=== PATIENT | male | born 2000 | race Caucasian/White ===

== ENCOUNTER 2021-09-01 09:35 | Inpatient (IN) ==
[2021-09-01] MEDS ORDERED: IPRATROPIUM/ALBUTEROL 3 ML AMPUL.NEB NEB ONE ×2 (09:42→09:48)
--- NOTE | 2021-09-01 09:45 | Emergency Department Note ---
HPI General Chief complaint: Shortness of Breath/Dyspnea Stated complaint: Shortness of Breath Time Seen by Provider: 09/01/21 09:44 Source: patient Mode of arrival: ambulatory Limitations: no limitations History of Present Illness HPI Narrative: 21-year-old male with past medical history of exercise-induced asthma presenting with shortness of breath since yesterday. He has an associated nonproductive cough. States he had exercise-induced asthma as a child but is not currently on any medication. Denies any sick contacts. No fever, chest pain, vomiting, or leg swelling. Patient states he was diagnosed with Covid in January 2021. He has not received the Covid vaccine. No recent travel. No other complaints. Related Data Home Medications Medication Instructions Recorded Confirmed No Known Home Meds 09/01/21 09/01/21 Allergies Allergy/AdvReac Type Severity Reaction Status Date / Time hay fever Allergy Severe shortness Uncoded 09/01/21 09:34 of breath Review of Systems ROS ROS Narrative: Narrative: Constitutional: Denies fever or chills Eyes: Denies vision change ENT ED: Denies ear pain or throat pain Cardiovascular: Denies chest pain or palpitations Respiratory: Reports shortness of breath and cough; Denies hemoptysis Gastrointestinal: Denies abdominal pain, nausea or vomiting Genitourinary: Denies dysuria or frequency Musculoskeletal: Denies back pain or joint swelling Integumentary: Denies rash or lesions Neurological: Denies headache or weakness Psychiatric: Denies anxiety or depression Endocrine: Denies fatigue or heat or cold intolerance Hematological/Lymphatic: Denies easy bleeding or easy bruising PFS Narrative Patient History Narrative: Narrative: Medical/Surgical/Family History All Active Problems (Updated 09/01/21 @ 14:20 by Shantanu Blanchard MD) Asthma exacerbation (Acute) Acute respiratory failure with hypoxia (Acute) Shortness of breath (Acute) Medical History (Updated 09/01/21 @ 14:20 by Shantanu Blanchard MD) Shortness of breath Social History Smoking Status: Never smoker Exam Narrative Narrative: Narrative: General Limitations: no limitations General appearance: Present alert and other (In moderate respiratory distress) Head Head: Present atraumatic and normocephalic Eye Eye: Present normal appearance, PERRL and EOMI; Absent scleral icterus or conjunctival injection ENT ENT: Present normal oropharynx and mucous membranes moist Neck Neck: Present full ROM and trachea midline; Absent lymphadenopathy Chest Chest: Present symmetric chest wall rise Respiratory Respiratory: Present respiratory distress, wheezes (Inspiratory and expiratory wheezes bilaterally) and accessory muscle use; Absent rales/crackles or stridor Cardiovascular Cardiovascular: Present regular rate and normal rhythm; Absent systolic murmur or diastolic murmur Adbominal Abdominal: Present soft; Absent distention, tenderness, guarding, rebound, rigidity, organomegaly or mass Extremities Extremities: Absent pedal edema, pretibial edema or calf tenderness Back Back: Absent CVA tenderness (R), CVA tenderness (L) or spinous process tenderness Neurological Neurological: Present alert and oriented X3 Psychiatric Psychiatric: Present normal affect and normal mood Skin Skin: Present warm (WNL) and dry Course Reevaluation(s) Reevaluation #1: Patient continues to be hypoxic to the high 80s on 4 L via nasal cannula. Wheezing is somewhat improved but still present. Time: 13:30 Consultations Consultation #1: Dr. Pritchett, hospitalist Time: 13:50 Vital Signs Vital signs: Vital Signs Temperature 98.7 F 09/01/21 09:36 Pulse Rate 117 H 09/01/21 09:36 Respiratory Rate 26 H 09/01/21 09:36 Blood Pressure 154/104 09/01/21 09:36 Pulse Oximetry (%) 85 L 09/01/21 09:36 Temperature 98.7 F 09/01/21 09:36 Pulse Rate 90 09/01/21 13:46 Respiratory Rate 33 H 09/01/21 13:46 Blood Pressure 132/78 09/01/21 13:46 Pulse Oximetry (%) 86 L 09/01/21 13:46 [facility] MDM Narrative Medical decision making narrative: 21-year-old male with remote history of asthma presenting with shortness of breath. On arrival he is hypoxic to 87% on room air with moderate respiratory distress, retractions, and bilateral wheezing. He was given IV Solu-Medrol and a DuoNeb treatment. He is currently on 4 L of O2 via nasal cannula. Chest x- ray shows possible infiltrate in the right perihilar area. Given his symptoms will treat for pneumonia. Hour-long neb treatment and IV Rocephin ordered. Labs and blood cultures are pending. Influenza and rapid Covid test is negative. Will continue to monitor, likely admission for dyspnea and hypoxia. Labs notable for mild leukocytosis. IV magnesium ordered for asthma exacerbation. Patient discussed with admitting hospitalist Dr. Pritchett. Lab Data Lab results reviewed: Yes I reviewed the patient's lab results. Result diagrams: 09/01/21 11:30 09/01/21 11:30 Labs: Lab Results 09/01/21 09/01/21 Range/Units 11:30 11:30 WBC 14.5 H (4.5-11.0) K/mcL RBC 5.80 (4.63-6.08) M/mcL Hgb 18.2 H (13.7-17.5) g/dL Hct 51.0 (40.1-51.0) % MCV 87.9 (80.0-100.0) fL MCH 31.4 (26.0-34.0) pg MCHC 35.7 (31.0-36.0) g/dL RDW 11.8 (11.5-14.5) % Plt Count 303 (140-440) K/mcL MPV 10.5 H (7.4-10.4) fL Neut % (Auto) 59.0 (38.0-78.0) % Lymph % (Auto) 15.2 L (15.5-49.0) % [place] % (Auto) 8.4 (1.0-12.0) % Eos % (Auto) 16.3 H (0.0-7.0) % Baso % (Auto) 1.1 (0.0-2.0) % Lymph # (Auto) 2.19 (1.50-4.80) K/mcL [place] # (Auto) 1.21 H (0.10-0.90) K/mcL Eos # (Auto) 2.36 H (0.00-0.70) K/mcL Baso # (Auto) 0.16 (0.00-0.30) K/mcL Absolute Neutrophils 8.53 H (1.80-8.00) K/mcL Sodium 134 (133-145) mmol/L Potassium 4.1 (3.3-5.1) mmol/L Chloride 99 (96-108) mmol/L Carbon Dioxide 18 L (22-30) mmol/L Anion Gap 17.0 H (8.0-16.0) BUN 18 (6-20) mg/dL Creatinine 0.9 (0.7-1.2) mg/dL GFR Calculation 122 Glucose 81 (70-105) mg/dL Calcium 9.8 (8.6-10.4) mg/dL Magnesium 2.3 (1.6-2.5) mg/dL Total Bilirubin 0.9 (0.1-1.0) mg/dL AST 29 (<40) U/L ALT 14 (<40) U/L Alkaline Phosphatase 67 (39-117) U/L Total Protein 8.1 (5.9-8.4) gm/dL Albumin 5.0 (3.2-5.2) gm/dL Globulin 3.1 (2.2-3.7) gm/dL Albumin/Globulin Ratio 1.6 (1.0-2.3) ED POC Tests ED POC Tests: PHILOMENA - Influenza A Negative PHILOMENA - Influenza B Negative PHILOMENA - SARS Antigen Negative Radiology Data Radiology results reviewed: Yes I reviewed the patient's radiology results. Radiology results narrative: Ordering Physician:Shantanu Blanchard M.D. Date of Service:09/01/21 Procedure(s):XR chest 1V portable CLINICAL INFORMATION: Left-sided chest pain and cough COMPARISON: 07/07/2021 TECHNIQUE: Portable FINDINGS: The heart size, mediastinum and pulmonary vessels are unremarkable. The lungs are clear. There are no effusions. The bones and soft tissues are within normal limits. IMPRESSION: Normal chest. Interpreted and Authenticated by: Darin Lai 09/01/21 EKG Data EKG #1: EKG attestation: Yes I reviewed and interpreted this EKG. and Yes There are no EKG findings of acute coronary syndrome EKG results narrative: Sinus rhythm at [address] elevation or depression. Interpretation: no acute changes Pulse Oximetry Data Pulse Ox %: 87 Interpretation: On RA, placed on O2 via NC Discharge Plan Patient/Caregiver Discharge Instructions Pt seen by [employer]ER/PA only: No Clinical Impression: Asthma exacerbation Patient Disposition: Xfer As Inpt ([facility]) Follow up with: Unknown,Unknown [Primary Care Provider] - Prescriptions: No Action No Known Home Meds 0RF
[2021-09-01] MEDS ORDERED: methylPREDNISolone SOD SUCC 125 MG/2 ML VIAL IV ONE (09:51)
[2021-09-01] MEDS ORDERED: cefTRIAXone 1 GM VIAL IV ONE (11:32)
[2021-09-01] MEDS ORDERED: ALBUTEROL SULFATE 5 MG/ML NEB SOLUTION BOTTLE NEB ONE (11:34)
[2021-09-01 12:50] LABS: ALT/SGPT 14 U/L (<40); AST/SGOT 29 U/L (<40); Albumin/Globulin Ratio 1.6 (1.0-2.3); Alkaline Phosphatase 67 U/L (39-117); Basophils # (Auto) 0.16 K/mcL (0.00-0.30); Basophils % (Auto) 1.1 % (0.0-2.0); Bilirubin,Total 0.9 mg/dL (0.1-1.0); Blood Urea Nitrogen 18 mg/dL (6-20); Calcium 9.8 mg/dL (8.6-10.4); Carbon Dioxide 18 mmol/L (22-30); Chloride 99 mmol/L (96-108); Eosinophils # (Auto) 2.36 K/mcL (0.00-0.70); Eosinophils % (Auto) 16.3 % (0.0-7.0); Globulin 3.1 gm/dL (2.2-3.7); Glomerular Filtration Rate 122; Glucose 81 mg/dL (70-105); Hemoglobin 18.2 g/dL (13.7-17.5); Lymphocytes # (Auto) 2.19 K/mcL (1.50-4.80); Lymphocytes % (Auto) 15.2 % (15.5-49.0); Mean Cell Volume 87.9 fL (80.0-100.0); Mean Corpuscular HGB Conc 35.7 g/dL (31.0-36.0); Mean Platelet Volume 10.5 fL (7.4-10.4); Monocytes # (Auto) 1.21 K/mcL (0.10-0.90); Monocytes % (Auto) 8.4 % (1.0-12.0); Platelet Count 303 K/mcL (140-440); Red Cell Distribution Width 11.8 % (11.5-14.5); WBC 14.5 K/mcL (4.5-11.0)
--- NOTE | 2021-09-01 12:56 | XRay Report ---
CLINICAL INFORMATION: Left-sided chest pain and cough COMPARISON: 07/07/2021 TECHNIQUE: Portable FINDINGS: The heart size, mediastinum and pulmonary vessels are unremarkable. The lungs are clear. There are no effusions. The bones and soft tissues are within normal limits. IMPRESSION: Normal chest. Interpreted and Authenticated by: Darin Lai 09/01/21
[2021-09-01] MEDS ORDERED: MAGNESIUM SULFATE 8.12 MEQ in DEXTROSE 5% IN WATER 50 ML IV ONE (14:04)
--- NOTE | 2021-09-01 14:15 | Internal Med History&Physical ---
HPI History of Present Illness Patient information: Note initiated : 09/01/21 at 2:07 pm Service Date, if different from initiated Date: [] Patient: Rolando Velazquez a 21 y/o M admitted on for Shortness of Breath. Chief Complaint: [SOB] History of present illness: Mr. Velazquez is a 21 year old M history of asthma, presenting with 1 week history of productive cough with white sputum with blood-tinged, and 2-day history of shortness of breath and wheezing. He had an episode of asthma exacerbations back in January 2021. Over the past week, he has acute onset, progressively worsening productive cough with white sputum with blood-tinged, as well as 2-day history of shortness of breath, chest tightness, and respiratory wheezings. Patient denies any fever, chills, or diaphoresis. Review of system also positive for anxiety. Patient admits to smoking marijuana but denies cigarette smoking or alcohol consumption's. Patient work in [employer] in the [employer], and denies exposure to environmental risk factors such as [place] environment, new pet, or old carpets. He living in his new apartment with new carpet. He is living with 3 cats but he has them for long time. Vital signs at ED presentation significant for oxygen desaturating to the 80s on room air, as well as tachycardia and tachypnea with rate of breathing up to 40s and heart rate up to 130s beats per minutes. Labs significant for leukocytosis with WBC 14.5. Covid [place] screening test negative. [place] results pending. Chest x-ray clear. Constitutional Constitutional: Absent chills, excessive sweating, fatigue, fever(s) or weakness EENT Eyes: Absent blurry vision, change in vision, loss of vision or other visual disturbances Ears: Absent decreased hearing or tinnitus Nose, mouth and throat: Absent abnormal hearing, dry mouth, headache(s), nasal congestion or sore throat Cardiovascular Cardiovascular: Present chest pain; Absent chest pain at rest, edema, irregular heart rhythm or palpatations Respiratory Respiratory: Present cough, dyspnea, wheezing and excessive phlegm production Gastrointestinal Gastrointestinal: Absent abdominal pain, constipation, diarrhea, nausea or vomiting Musculoskeletal Musculoskeletal: Absent back pain, deformity, limited range of motion, muscle cramps, muscle weakness or numbness Integumentary Integumentary: Absent lesions, rash or wounds Neurological Neurological: Absent focal weakness, headache(s) or numbness Psychiatric Psychiatric: Present anxiety; Absent depression or hallucinations PFSH PFSH All Active Problems (Updated 09/01/21 @ 14:12 by Joe Pritchett MD) Asthma exacerbation (Acute) Acute respiratory failure with hypoxia (Acute) Shortness of breath (Acute) Medical History (Updated 09/01/21 @ 14:12 by Joe Pritchett MD) Shortness of breath MEDS/ALLERGIES Home Medications and Allergies Home Medications Medication Instructions Recorded Confirmed Type No Known Home Meds 09/01/21 09/01/21 History Allergies Allergy/AdvReac Type Severity Reaction Status Date / Time hay fever Allergy Severe shortness Uncoded 09/01/21 09:34 of breath EXAM Constitutional Vitals: Temp Pulse Resp BP Pulse Ox 37.1 C 90 33 H 132/78 86 L 09/01/21 09:36 09/01/21 13:46 09/01/21 13:46 09/01/21 13:46 09/01/21 13:46 General appearance: cooperative and mild distress Head Head exam: Present atraumatic and normocephalic Eye Eye exam: Present EOMI and PERRL ENT ENT exam: Present mucous membranes moist, normal exam and normal external ear exam Additional comments: Nasal cannula in place Neck Neck exam: Present normal inspection; Absent lymphadenopathy, tenderness or thyromegaly Respiratory Respiratory exam: Present respiratory distress, rhonchi and wheezes; Absent accessory muscle use or CTAB Cardiovascular Cardiovascular exam: Present normal rate and rhythm; Absent JVD GI/Abdominal GI/Abdominal exam: Present normal bowel sounds and soft; Absent organomegaly or tenderness Rectal Rectal exam: Present deferred Extremities Exam Extremities exam: Present full ROM, normal capillary refill and normal inspection; Absent tenderness Neurological Exam Neurological exam: Present alert, CN II-XII intact and oriented X3; Absent motor sensory deficit Psychiatric Psychiatric exam: Present normal affect and normal mood; Absent anxious or depressed Skin Skin exam: Present dry and intact DATA Data Completed and Pending Labs: Labs from last 24 hours 09/01/21 09/01/21 11:30 11:30 WBC 14.5 H RBC 5.80 Hgb 18.2 H Hct 51.0 MCV 87.9 MCH 31.4 MCHC 35.7 RDW 11.8 Plt Count 303 MPV 10.5 H Neut % (Auto) 59.0 Lymph % (Auto) 15.2 L [place] % (Auto) 8.4 Eos % (Auto) 16.3 H Baso % (Auto) 1.1 Lymph # (Auto) 2.19 [place] # (Auto) 1.21 H Eos # (Auto) 2.36 H Baso # (Auto) 0.16 Absolute Neutrophils 8.53 H Sodium 134 Potassium 4.1 Chloride 99 Carbon Dioxide 18 L Anion Gap 17.0 H BUN 18 Creatinine 0.9 GFR Calculation 122 Glucose 81 Calcium 9.8 Magnesium 2.3 Total Bilirubin 0.9 AST 29 ALT 14 Alkaline Phosphatase 67 Total Protein 8.1 Albumin 5.0 Globulin 3.1 Albumin/Globulin Ratio 1.6 A/P Assessment and plan (1) Acute respiratory failure with hypoxia: Status: Acute (2) Asthma exacerbation: Status: Acute Narrative A/P Narrative: Assessment and Plans: 1. Acute respiratory failure with hypoxia: DDx: asthma exacerbation vs pneumonia vs CoVID pneumonia: Admit to inpatient med surg with telemetry s/p DuoNEB, MgSO4, Solu-medrol, and oxygen therapy in the ED VBG Procalcitonin Lactic acid Blood culture Sputum culture [place] negative, [place] pending Supplemental oxygen therapy titrate to achieve spo2>=92%, currently on 4L/min Prednisone DuoNEB NEB q4hr scheduled Albuterol NEB q2hr PRN wheezing or SOB Robitussin DM PRN cough Tylenol PRN fever cbc w/ auto diff in the morning to trend WBC level GI ppx: not currently indicated DVT ppx: Lovenox Code status: Full Prognosis: guarded Disposition: inpatient med surg telemetry Time Spent With Patient Time: Total time spent is greater than 50% in coordination of care (as documented) at patient's floor/unit and/or counseling patient: Total time spent with greater than 50% in coordination of care (as documented) at patient's floor/unit and/or counseling patient:: 25 - 35 minutes
[2021-09-01] MEDS ORDERED: guaiFENesin/DEXTROMETHORPHAN ORAL SOL PO PRN (14:18)
[2021-09-01] MEDS ORDERED: ONDANSETRON 4 MG/2 ML VIAL IV PRN (14:48)
[2021-09-01] MEDS ORDERED: ACETAMINOPHEN 325 MG TABLET PO PRN (14:48)
[2021-09-01] MEDS ORDERED: ZOLPIDEM 5 MG TABLET PO PRN (14:48)
[2021-09-01] MEDS ORDERED: IOPAMIDOL 100 ML BOTTLE IV ONE (15:19)
[2021-09-01] MEDS: IPRATROPIUM/ALBUTEROL 3 ML AMPUL.NEB NEB SCH ×3 (15:55→23:41)
--- NOTE | 2021-09-01 18:14 | Cat Scan Report ---
CLINICAL INFORMATION: Dyspnea COMPARISON: None. TECHNIQUE: 80ml of Isovue-370 were injected intravenously. Using SmartPrep to maximize pulmonary artery opacification, .625mm helical slices were obtained from the lung apices through the lung bases. Following reconstruction, 2.5 mm sagittal, coronal, and axial reformations were processed. The exam was reviewed at mediastinal, lung, and bone windows. The exam was performed using radiation dose optimization techniques including, but not limited to, automated exposure control, adjustment of the mA and/or kV according to patient size and use of iterative reconstruction technique. FINDINGS: Pulmonary parenchymal windows show scattered small groundglass infiltrates throughout both upper and lower lobes and lingula. Suspect infection. No effusions.. Pleural spaces are unremarkable-no effusions. Mediastinal windows show the heart is grossly normal in size and configuration. The pulmonary arteries are normal diameter and well-opacified without evidence of embolus. Thoracic aorta is also normal diameter and well-opacified. There is no adenopathy in the mediastinal, hilar or axillary regions. Small hiatal hernia noted.. The thyroid is unremarkable. Bones and soft tissues the chest wall are normal. Images through the superior abdomen are unremarkable. IMPRESSION: 1. No pulmonary embolus embolus. 2. Scattered small groundglass infiltrates throughout both upper lower lobes and lingula suspect infection 3. Small hiatal hernia Interpreted and Authenticated by: Darin Lai 09/01/21
[2021-09-01] MEDS: ALBUTEROL SULFATE 2.5 MG/3 ML NEBULIZER NEB PRN (21:37)
[2021-09-01] MEDS: DOCUSATE SODIUM 100 MG CAPSULE PO SCH (21:51)
[2021-09-01] MEDS: SENNOSIDES 1 TABLET PO SCH (21:51)
[2021-09-01] MEDS: LORazepam 1 MG TABLET PO PRN (21:51)
[2021-09-01] MEDS: 0.9 % SODIUM CHLORIDE 10 ML SYRINGE IV SCH (22:04)
[2021-09-02] MEDS: ALBUTEROL SULFATE 2.5 MG/3 ML NEBULIZER NEB PRN ×2 (01:07→05:09)
[2021-09-02] MEDS: IPRATROPIUM/ALBUTEROL 3 ML AMPUL.NEB NEB SCH ×6 (03:18→23:33)
[2021-09-02] MEDS: 0.9 % SODIUM CHLORIDE 10 ML SYRINGE IV SCH ×3 (06:11→21:54)
[2021-09-02 06:52] LABS: Basophils # (Auto) 0.05 K/mcL (0.00-0.30); Basophils % (Auto) 0.3 % (0.0-2.0); Eosinophils # (Auto) 0.01 K/mcL (0.00-0.70); Eosinophils % (Auto) 0.1 % (0.0-7.0); Hematocrit 46.7 % (40.1-51.0); Hemoglobin 15.8 g/dL (13.7-17.5); Lymphocytes # (Auto) 2.13 K/mcL (1.50-4.80); Lymphocytes % (Auto) 14.7 % (15.5-49.0); Mean Cell Volume 89.6 fL (80.0-100.0); Mean Corpuscular HGB Conc 33.8 g/dL (31.0-36.0); Mean Platelet Volume 10.4 fL (7.4-10.4); Monocytes # (Auto) 1.95 K/mcL (0.10-0.90); Monocytes % (Auto) 13.5 % (1.0-12.0); Neutrophils % (Auto) 71.4 % (38.0-78.0); Platelet Count 271 K/mcL (140-440); RBC 5.21 M/mcL (4.63-6.08); Red Cell Distribution Width 11.9 % (11.5-14.5); WBC 14.5 K/mcL (4.5-11.0)
[2021-09-02 07:11] LABS: ALT/SGPT 14 U/L (<40); AST/SGOT 18 U/L (<40); Albumin 4.5 gm/dL (3.2-5.2); Albumin/Globulin Ratio 1.6 (1.0-2.3); Alkaline Phosphatase 60 U/L (39-117); Bilirubin,Total 0.3 mg/dL (0.1-1.0); Blood Urea Nitrogen 22 mg/dL (6-20); Calcium 9.3 mg/dL (8.6-10.4); Carbon Dioxide 19 mmol/L (22-30); Chloride 104 mmol/L (96-108); Globulin 2.9 gm/dL (2.2-3.7); Glomerular Filtration Rate 128; Glucose 111 mg/dL (70-105)
[2021-09-02] MEDS: guaiFENesin/DEXTROMETHORPHAN ORAL SOL PO PRN (08:56)
[2021-09-02] MEDS: predniSONE 20 MG TABLET PO SCH (08:57)
[2021-09-02] MEDS: ENOXAPARIN 40 MG/0.4 ML SYRINGE SQ SCH (08:57)
[2021-09-02] MEDS: DOCUSATE SODIUM 100 MG CAPSULE PO SCH ×2 (08:57→20:32)
[2021-09-02] MEDS: LORazepam 1 MG TABLET PO PRN ×2 (08:57→16:00)
[2021-09-02] MEDS ORDERED: METOPROLOL TARTRATE 5 MG/5 ML VIAL IV PRN (08:59)
[2021-09-02] MEDS: METOPROLOL TARTRATE 5 MG/5 ML VIAL IV PRN ×2 (09:23→15:59)
--- NOTE | 2021-09-02 09:24 | Internal Med Progress Note ---
SUBJECTIVE Subjective Patient information: Note initiated : 09/02/21 at 9:20 am Service Date, if different from initiated Date: [] Patient: Rolando Velazquez a 21 y/o M admitted on 09/01/21 for Shortness of Breath. Chief Complaint: [asthma exacerbation] Interval history: History of present illness: Mr. Velazquez is a 21 year old M history of asthma, presenting with 1 week history of productive cough with white sputum with blood-tinged, and 2-day history of shortness of breath and wheezing. He had an episode of asthma exacerbations back in January 2021. Over the past week, he has acute onset, progressively worsening productive cough with white sputum with blood-tinged, as well as 2-day history of shortness of breath, chest tightness, and respiratory wheezings. Patient denies any fever, chills, or diaphoresis. Review of system also positive for anxiety. Patient admits to smoking marijuana but denies cigarette smoking or alcohol consumption's. Patient work in [employer] in the [employer], and denies exposure to environmental risk factors such as [place] environment, new pet, or old carpets. He living in his new apartment with new carpet. He is living with 3 cats but he has them for long time. Vital signs at ED presentation significant for oxygen desaturating to the 80s on room air, as well as tachycardia and tachypnea with rate of breathing up to 40s and heart rate up to 130s beats per minutes. Labs significant for leukocytosis with WBC 14.5. Covid [place]isa screening test negative. [place] results pending. Chest x-ray clear. 09/02: [place] negative. Chest CT angiogram no PE. Afebrile. On high flow oxygen 40L/min FiO2 70%. c/o SOB. c/o nonproductive cough. c/o wheezing. c/o left sided chest pain. c/o anxiety. Denies fever, chills, or sweating. On DuoNeb, Albuterol, Prednisone. Constitutional Vitals: Vital Signs Temp Pulse Resp BP Pulse Ox 36.4 C 102 H 20 132/70 97 09/02/21 08:01 09/02/21 07:06 09/02/21 08:01 09/02/21 08:01 09/02/21 08:01 Period Temp Pulse Resp BP Sys/Pete Pulse Ox Last 24 Hr 36.4 C-37.1 C 70-137 14-47 103-162/52-104 85-98 Intake and Output 09/01/21 09/02/21 09/02/21 21:59 05:59 13:59 Intake Total 52 50 Output Total 475 Balance -423 50 Weight 83.506 kg Intake & Output: Intake & Output 09/01/21 09/02/21 09/02/21 21:59 05:59 13:59 Intake Total 52 50 Output Total 475 Balance -423 50 Weight 83.506 kg Intake: IV 52 Magnesium Sulfate 8.12 Meq In 52 Dextrose 5% in Water 50 ml @ 52 mls/hr IV ONCE ONE Rx#: [id number] Oral 50 Output: Void Amount 475 Other: Urine Appearance Clear Urine Color Dark Yellow Urine Odor Normal General appearance: cooperative and mild distress Head Head exam: Present atraumatic and normal inspection Eye Eye exam: Present normal appearance ENT ENT exam: Present mucous membranes moist, normal exam and normal external ear exam Additional comments: High flow oxygen Neck Neck exam: Present normal inspection Respiratory Respiratory exam: Present respiratory distress, rhonchi and wheezes; Absent CTAB Cardiovascular Cardiovascular exam: Present tachycardia GI/Abdominal GI/Abdominal exam: Present normal bowel sounds Back Exam Back exam: Present normal inspection Neurological Exam Neurological exam: Present alert and oriented X3 Skin Skin exam: Present intact and warm OBJ DATA Labs CBC & Chem 7: 09/02/21 05:03 09/02/21 05:02 Labs: Abnormal Lab Results 09/02/21 09/02/21 09/01/21 05:03 05:02 11:30 WBC 14.5 H Hgb MPV Lymph % (Auto) 14.7 L [place] % (Auto) 13.5 H Eos % (Auto) [place] # (Auto) 1.95 H Eos # (Auto) Absolute Neutrophils 10.32 H Carbon Dioxide 19 L 18 L Anion Gap 17.0 H BUN 22 H Glucose 111 H 09/01/21 11:30 WBC 14.5 H Hgb 18.2 H MPV 10.5 H Lymph % (Auto) 15.2 L [place] % (Auto) Eos % (Auto) 16.3 H [place] # (Auto) 1.21 H Eos # (Auto) 2.36 H Absolute Neutrophils 8.53 H Carbon Dioxide Anion Gap BUN Glucose Meds: Medications Acetaminophen (Acetaminophen 325 Mg Tablet) 650 mg PO Q6HP PRN; Protocol PRN Reason: Per Pain Protocol/Fever > 101 Albuterol Sulfate (Albuterol Sulfate 2.5 Mg/3 Ml Nebulizer) 2.5 mg NEB Q2HP PRN PRN Reason: Shortness Of Breath Last Admin: 09/02/21 05:09 Dose: 2.5 mg Documented by: Albuterol/Ipratropium (Ipratropium/Albuterol 3 Ml Ampul.Neb) 3 ml NEB Q4HRT [facility] Last Admin: 09/02/21 07:06 Dose: 3 ml Documented by: Docusate Sodium (Docusate Sodium 100 Mg Capsule) 100 mg PO BID [facility] Last Admin: 09/02/21 08:57 Dose: Not Given Documented by: Enoxaparin Sodium (Enoxaparin 40 Mg/0.4 Ml Syringe) 40 mg SQ DAILY [facility] Last Admin: 09/02/21 08:57 Dose: 40 mg Documented by: Guaifenesin (Guaifenesin/Dextromethorphan Oral [place]) 10 ml PO Q4HP PRN PRN Reason: Cough Last Admin: 09/02/21 08:56 Dose: 10 ml Documented by: Lorazepam (Lorazepam 1 Mg Tablet) 1 mg PO Q6HP PRN PRN Reason: ANXIETY/SEDATION Last Admin: 09/02/21 08:57 Dose: 1 mg Documented by: Ondansetron HCl (Ondansetron 4 Mg/2 Ml Vial) 4 mg IV Q6HP PRN PRN Reason: Nausea And Vomiting Prednisone (Prednisone 20 Mg Tablet) 40 mg PO [facility] Last Admin: 09/02/21 08:57 Dose: 40 mg Documented by: Senna (Sennosides 1 Tablet) 2 tab PO [facility] Last Admin: 09/01/21 21:51 Dose: Not Given Documented by: Sodium Chloride (0.9 % Sodium Chloride 10 Ml Syringe) 10 ml IV Q8 [facility] Last Admin: 09/02/21 06:11 Dose: 10 ml Documented by: Zolpidem Tartrate (Zolpidem 5 Mg Tablet) 5 mg PO [facility] PRN PRN Reason: Insomnia A/P Assessment and plan (1) Acute respiratory failure with hypoxia: Status: Acute (2) Asthma exacerbation: Status: Acute Narrative A/P Narrative: Assessment and Plans: 1. Acute respiratory failure with hypoxia: DDx: asthma exacerbation vs pneumonia vs CoVID pneumonia: Stays in inpatient med surg with telemetry s/p DuoNEB, MgSO4, Solu-medrol, and oxygen therapy in the ED VBG Procalcitonin 0.07 Lactic acid Blood culture, no growth to date Sputum culture, no growth to date [place] negative, [place] negative CT chest angiogram negative for PE; small bilateral patchy infiltrates Supplemental oxygen therapy titrate to achieve spo2>=92%, currently on high flow oxygen 40L/min FiO2 70% Prednisone DuoNEB NEB q4hr scheduled Albuterol NEB q2hr PRN wheezing or SOB Robitussin DM PRN cough Tylenol PRN fever cbc w/ auto diff in the morning to trend WBC level GI ppx: not currently indicated DVT ppx: Lovenox Code status: Full Prognosis: guarded Disposition: inpatient PCU with telemetry Time Spent With Patient Time: Total time spent is greater than 50% in coordination of care (as documented) at patient's floor/unit and/or counseling patient: Total time spent with greater than 50% in coordination of care (as documented) at patient's floor/unit and/or counseling patient:: Greater than 35 minutes
--- NOTE | 2021-09-02 10:50 | EKG ---
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
[2021-09-02] MEDS: SENNOSIDES 1 TABLET PO SCH (20:33)
[2021-09-03] MEDS: IPRATROPIUM/ALBUTEROL 3 ML AMPUL.NEB NEB SCH ×2 (02:35→07:11)
[2021-09-03] MEDS: 0.9 % SODIUM CHLORIDE 10 ML SYRINGE IV SCH ×2 (05:46→12:35)
[2021-09-03 06:42] LABS: Basophils # (Auto) 0.07 K/mcL (0.00-0.30); Basophils % (Auto) 0.6 % (0.0-2.0); Eosinophils % (Auto) 1.6 % (0.0-7.0); Hematocrit 45.7 % (40.1-51.0); Hemoglobin 15.1 g/dL (13.7-17.5); Lymphocytes # (Auto) 3.04 K/mcL (1.50-4.80); Lymphocytes % (Auto) 24.9 % (15.5-49.0); Mean Cell Volume 89.8 fL (80.0-100.0); Mean Platelet Volume 10.1 fL (7.4-10.4); Monocytes # (Auto) 1.48 K/mcL (0.10-0.90); Monocytes % (Auto) 12.1 % (1.0-12.0); Neutrophils % (Auto) 60.8 % (38.0-78.0); Platelet Count 277 K/mcL (140-440); RBC 5.09 M/mcL (4.63-6.08); WBC 12.2 K/mcL (4.5-11.0)
[2021-09-03 07:08] LABS: ALT/SGPT 17 U/L (<40); AST/SGOT 23 U/L (<40); Albumin 4.4 gm/dL (3.2-5.2); Albumin/Globulin Ratio 1.6 (1.0-2.3); Alkaline Phosphatase 55 U/L (39-117); Bilirubin,Total 0.6 mg/dL (0.1-1.0); Blood Urea Nitrogen 17 mg/dL (6-20); Calcium 9.5 mg/dL (8.6-10.4); Carbon Dioxide 23 mmol/L (22-30); Chloride 103 mmol/L (96-108); Globulin 2.7 gm/dL (2.2-3.7); Glomerular Filtration Rate 128; Glucose 89 mg/dL (70-105)
[2021-09-03] MEDS: DOCUSATE SODIUM 100 MG CAPSULE PO SCH (07:12)
[2021-09-03] MEDS: guaiFENesin/DEXTROMETHORPHAN ORAL SOL PO PRN ×2 (07:49→16:22)
[2021-09-03] MEDS: predniSONE 20 MG TABLET PO SCH (07:50)
[2021-09-03] MEDS: ENOXAPARIN 40 MG/0.4 ML SYRINGE SQ SCH (07:50)
[2021-09-03] MEDS: LORazepam 1 MG TABLET PO PRN ×2 (07:50→16:21)
[2021-09-03] MEDS ORDERED: LEVALBUTEROL 1.25 MG/3 ML AMPUL.NEB NEB PRN (08:50)
--- NOTE | 2021-09-03 08:55 | Internal Med Progress Note ---
SUBJECTIVE Subjective Patient information: Note initiated : 09/03/21 at 8:51 am Service Date, if different from initiated Date: [] Patient: Rolando Velazquez a 21 y/o M admitted on 09/01/21 for Shortness of Breath. Chief Complaint: [] Interval history: History of present illness: Mr. Velazquez is a 21 year old M history of asthma, presenting with 1 week history of productive cough with white sputum with blood-tinged, and 2-day history of shortness of breath and wheezing. He had an episode of asthma exacerbations back in January 2021. Over the past week, he has acute onset, progressively worsening productive cough with white sputum with blood-tinged, as well as 2-day history of shortness of breath, chest tightness, and respiratory wheezings. Patient denies any fever, chills, or diaphoresis. Review of system also positive for anxiety. Patient admits to smoking marijuana but denies cigarette smoking or alcohol consumption's. Patient work in [employer] in the [facility] [place], and denies exposure to environmental risk factors such as alea environment, new pet, or old carpets. He living in his new apartment with new carpet. He is living with 3 cats but he has them for long time. Vital signs at ED presentation significant for oxygen desaturating to the 80s on room air, as well as tachycardia and tachypnea with rate of breathing up to 40s and heart rate up to 130s beats per minutes. Labs significant for leukocytosis with WBC 14.5. Covid [place] screening test negative. [address] results pending. Chest x-ray clear. 09/02: [address] negative. Chest CT angiogram no PE. Afebrile. On high flow oxygen 40L/min FiO2 70%. c/o SOB. c/o nonproductive cough. c/o wheezing. c/o left sided chest pain. c/o anxiety. Denies fever, chills, or sweating. On DuoNeb, Albuterol, Prednisone. 09/03: Afebrile overnight. Blood and sputum cultures no growth to date. Currently on high flow oxygen 25L/min, FiO2 35%. Improving SOB. c/o productive cough with sputum production. c/o wheezing. Denies chest pain. Denies fever, chills, or sweating. Denies anxiety. Will switch from DuoNeb and Albuterol to Xopenex, and will repeat CXR today. Constitutional Vitals: Vital Signs Temp Pulse Resp BP Pulse Ox 36.3 C 88 17 90/80 96 09/03/21 08:01 09/03/21 07:11 09/03/21 08:01 09/03/21 08:01 09/03/21 08:01 Period Temp Pulse Resp BP Sys/Pete Pulse Ox Last 24 Hr 36.1 C-36.4 C 67-102 17- 90-134/44-92 90-98 Intake and Output 09/02/21 09/03/21 09/03/21 21:59 05:59 13:59 Intake Total 360 120 Output Total 550 200 Balance -190 -80 Weight 83.506 kg Intake & Output: Intake & Output 09/02/21 09/03/21 09/03/21 21:59 05:59 13:59 Intake Total 360 120 Output Total 550 200 Balance -190 -80 Weight 83.506 kg Intake: Oral 360 120 Output: Void Amount 550 200 Other: Meal Dinner Percent of Meal Consumed 100% Urine Appearance Clear Clear Urine Color Dark Yellow Light Yaneli Stool Size Small Stool Color Brown Stool Consistency Loose General appearance: cooperative and no acute distress Head Head exam: Present atraumatic and normal inspection Eye Eye exam: Present normal appearance ENT ENT exam: Present mucous membranes moist, normal exam and normal external ear exam Additional comments: High flow oxygen in place Neck Neck exam: Present normal inspection Respiratory Respiratory exam: Present decreased breath sounds, rhonchi and wheezes Cardiovascular Cardiovascular exam: Present tachycardia GI/Abdominal GI/Abdominal exam: Present normal bowel sounds Back Exam Back exam: Present normal inspection Neurological Exam Neurological exam: Present alert and oriented X3 Skin Skin exam: Present intact and warm OBJ DATA Labs CBC & Chem 7: 09/03/21 05:01 09/03/21 05:01 Labs: Abnormal Lab Results 09/03/21 09/02/21 09/02/21 05:01 05:03 05:02 WBC 12.2 H 14.5 H Hgb MPV Lymph % (Auto) 14.7 L [place] % (Auto) 12.1 H 13.5 H Eos % (Auto) [place] # (Auto) 1.48 H 1.95 H Eos # (Auto) Absolute Neutrophils 10.32 H Carbon Dioxide 19 L Anion Gap BUN 22 H Glucose 111 H 09/01/21 09/01/21 11:30 11:30 WBC 14.5 H Hgb 18.2 H MPV 10.5 H Lymph % (Auto) 15.2 L [place] % (Auto) Eos % (Auto) 16.3 H [place] # (Auto) 1.21 H Eos # (Auto) 2.36 H Absolute Neutrophils 8.53 H Carbon Dioxide 18 L Anion Gap 17.0 H BUN Glucose Meds: Medications Acetaminophen (Acetaminophen 325 Mg Tablet) 650 mg PO Q6HP PRN; Protocol PRN Reason: Per Pain Protocol/Fever > 101 Docusate Sodium (Docusate Sodium 100 Mg Capsule) 100 mg PO BID [facility] Last Admin: 09/03/21 07:12 Dose: Not Given Documented by: Enoxaparin Sodium (Enoxaparin 40 Mg/0.4 Ml Syringe) 40 mg SQ DAILY [facility] Last Admin: 09/03/21 07:50 Dose: 40 mg Documented by: Guaifenesin (Guaifenesin/Dextromethorphan Oral Lenore) 10 ml PO Q4HP PRN PRN Reason: Cough Last Admin: 09/03/21 07:49 Dose: 10 ml Documented by: Levalbuterol HCl (Levalbuterol 1.25 Mg/3 Ml Ampul.Neb) 1.25 mg NEB Q2HP PRN PRN Reason: Shortness Of Breath Levalbuterol HCl (Levalbuterol 1.25 Mg/3 Ml Ampul.Neb) 1.25 mg NEB Q4HRT [facility] Lorazepam (Lorazepam 1 Mg Tablet) 1 mg PO Q6HP PRN PRN Reason: ANXIETY/SEDATION Last Admin: 09/03/21 07:50 Dose: 1 mg Documented by: Metoprolol Tartrate (Metoprolol Tartrate 5 Mg/5 Ml Vial) 5 mg IV Q5M PRN PRN Reason: tachycardia Last Admin: 09/02/21 15:59 Dose: 5 mg Documented by: Ondansetron HCl (Ondansetron 4 Mg/2 Ml Vial) 4 mg IV Q6HP PRN PRN Reason: Nausea And Vomiting Prednisone (Prednisone 20 Mg Tablet) 40 mg PO [facility] Last Admin: 09/03/21 07:50 Dose: 40 mg Documented by: Senna (Sennosides 1 Tablet) 2 tab PO [facility] Last Admin: 09/02/21 20:33 Dose: Not Given Documented by: Sodium Chloride (0.9 % Sodium Chloride 10 Ml Syringe) 10 ml IV Q8 [facility] Last Admin: 09/03/21 05:46 Dose: 10 ml Documented by: Zolpidem Tartrate (Zolpidem 5 Mg Tablet) 5 mg PO [facility] PRN PRN Reason: Insomnia A/P Assessment and plan (1) Acute respiratory failure with hypoxia: Status: Acute (2) Asthma exacerbation: Status: Acute Narrative A/P Narrative: Assessment and Plans: 1. Acute respiratory failure with hypoxia: DDx: asthma exacerbation vs pneumonia vs CoVID pneumonia: Stays in inpatient med surg with telemetry s/p DuoNEB, MgSO4, Solu-medrol, and oxygen therapy in the ED VBG Procalcitonin 0.07 Lactic acid Blood culture, no growth to date Sputum culture, no growth to date [place] negative, [address] negative CT chest angiogram negative for PE; small bilateral patchy infiltrates Supplemental oxygen therapy titrate to achieve spo2>=92%, currently on high flow oxygen 25L/min FiO2 35% Prednisone d/c DuoNEB NEB q4hr scheduled d/c Albuterol NEB q2hr PRN wheezing or SOB Switch to Xopenex NEB q4hr scheduled and q2hr PRN wheezing to prevent secondary tachycardia Robitussin DM PRN cough Tylenol PRN fever cbc w/ auto diff in the morning to trend WBC level Repeat CXR today 09/03 to rule out secondary bacterial pneumonia or other complications GI ppx: not currently indicated DVT ppx: Lovenox Code status: Full Prognosis: guarded Disposition: inpatient PCU with telemetry Time Spent With Patient Time: Total time spent is greater than 50% in coordination of care (as documented) at patient's floor/unit and/or counseling patient:
[2021-09-03] MEDS: METOPROLOL TARTRATE 5 MG/5 ML VIAL IV PRN ×2 (09:20→16:21)
[2021-09-03] MEDS: LEVALBUTEROL 1.25 MG/3 ML AMPUL.NEB NEB SCH ×2 (11:57→14:59)
--- NOTE | 2021-09-03 13:03 | XRay Report ---
CLINICAL INFORMATION: Shortness of breath. Post covid COMPARISON: 09/01/2021 TECHNIQUE: PA and Lateral views FINDINGS: The heart size, mediastinum and pulmonary vessels are unremarkable. Mild airspace disease has developed in the right infrahilar and lingular region either representing atelectasis or developing infiltrate.. There are no effusions. The bones and soft tissues are within normal limits. IMPRESSION: Mild airspace disease in the right infrahilar and lingular region-new. These either represent developing infiltrate or atelectasis Interpreted and Authenticated by: Darin Lai 09/03/21
[2021-09-03] MEDS ORDERED: cefTRIAXone 1 GM VIAL IV SCH (15:00)
[2021-09-03] MEDS ORDERED: AZITHROMYCIN 500 MG in DEXTROSE 5% IN WATER 250 ML IV SCH (15:00)
[2021-09-03] MEDS ORDERED: ALBUTEROL SULFATE 2.5 MG/3 ML NEBULIZER NEB PRN (15:10)
--- NOTE | 2021-09-03 16:41 | Discharge Summary ---
Discharge Provider Provider Patient information: Note initiated : 09/03/21 at 4:37 pm Service Date, if different from initiated Date: [] Patient: Rolando Velazquez 21 y/o M admitted on 09/01/21 for Shortness of Breath. Chief Complaint: [shortness of breath] Date of admission: 09/01/21 14:36 Discharge date: 09/03/21 Primary care physician: Unknown Unknown Attending physician on admission: Joe Pritchett Consults: 09/01/21 Consult to Physician [CONS] Stat Comment: Consulting Provider: Joe Pritchett Reason For Exam: Physician to Consult Attending physician on discharge: Joe Pritchett Discharge Meds Discharge Medications Home Medications albuterol sulfate 90 mcg/actuation aerosol inhaler 2 puff INHALATION QID PRN #6.7 g 09/03/21 [Rx Last Taken Unknown] dextromethorphan-guaifenesin 10 mg-100 mg/5 mL oral liquid (Robafen DM Cough) 10 ml PO Q4HP PRN #500 ml 09/03/21 [Rx Last Taken Unknown] levofloxacin 750 mg tablet 750 mg PO Q24H #4 tab 09/03/21 [Rx Last Taken Unkn own] COURSE Hospital Course Hospital course: On September 01, to discontinue went for shortness of breath with wheezing and cough. Differential diagnosis including asthma exacerbations and community acquired pneumonia. Patient was started on prednisone, magnesium, and bronchodilators together with oxygen therapy in terms of both high flow oxygen and regular nasal cannula oxygen for asthma exacerbations, and the decision was also made to start patients on antibiotics Rocephin and Zithromax for coverage of bacterial pneumonia on September 03, 2021. Patient has reached clinical stability on day 3 hospitalizations and was tolerating room air and had been afebrile for more than 24 hours. As such, the decision was made to discharge patient home with prescriptions of antibiotics bronchodilator and cough syrup given to him. Instruction to follow-up with PCP in 2 weeks given to him. All questions were answered prior to patient being physically discharged. Discharge diagnosis: asthma exacerbations and community acquired pneumonia Time Spent with Patient Time attestation: Total time spent providing and/or coordinating discharge services: Time spent: Less than 30 minutes EXAM Constitutional Vitals: Temp Pulse Resp BP Pulse Ox 36.4 C 88 24 H 122/66 95 09/03/21 16:02 09/03/21 14:59 09/03/21 16:02 09/03/21 16:02 09/03/21 16:02 General appearance: cooperative and no acute distress Head Head exam: Present atraumatic and normocephalic Eye Eye exam: Present EOMI and PERRL ENT ENT exam: Present mucous membranes moist, normal exam and normal external ear exam Neck Neck exam: Present normal inspection; Absent lymphadenopathy, tenderness or thyromegaly Respiratory Respiratory exam: Present decreased breath sounds and wheezes; Absent accessory muscle use or respiratory distress Cardiovascular Cardiovascular exam: Present tachycardia; Absent JVD GI/Abdominal GI/Abdominal exam: Present normal bowel sounds and soft; Absent organomegaly or tenderness Rectal Rectal exam: Present deferred Extremities Exam Extremities exam: Present full ROM, normal capillary refill and normal inspection; Absent tenderness Neurological Exam Neurological exam: Present alert, CN II-XII intact and oriented X3; Absent motor sensory deficit Psychiatric Psychiatric exam: Present normal affect and normal mood; Absent anxious or depressed Skin Skin exam: Present dry and intact Discharge Data Data Completed and Pending Labs on day of discharge: Labs from last 24 hours 09/03/21 09/03/21 05:01 05:01 WBC 12.2 H RBC 5.09 Hgb 15.1 Hct 45.7 MCV 89.8 MCH 29.7 MCHC 33.0 RDW 12.0 Plt Count 277 MPV 10.1 Neut % (Auto) 60.8 Lymph % (Auto) 24.9 [place] % (Auto) 12.1 H Eos % (Auto) 1.6 Baso % (Auto) 0.6 Lymph # (Auto) 3.04 [place] # (Auto) 1.48 H Eos # (Auto) 0.20 Baso # (Auto) 0.07 Absolute Neutrophils 7.42 Sodium 140 Potassium 4.1 Chloride 103 Carbon Dioxide 23 Anion Gap 14.0 BUN 17 Creatinine 0.8 GFR Calculation 128 Glucose 89 Calcium 9.5 Total Bilirubin 0.6 AST 23 ALT 17 Alkaline Phosphatase 55 Total Protein 7.1 Albumin 4.4 Globulin 2.7 Albumin/Globulin Ratio 1.6 Preliminary micro results at discharge 09/01/21 12:13 Blood Culture - Preliminary Blood 09/01/21 11:39 Blood Culture - Preliminary Blood Discharge Plan Patient/Caregiver Discharge Instructions Activity: increase activity as tolerated Diet: Regular Diet Prescriptions: New dextromethorphan-guaifenesin [Robafen DM Cough] 10-100 mg/5 mL Liquid 10 ml PO Q4HP PRN (Reason: Cough) Qty: 500 0RF albuterol sulfate 90 mcg/actuation HFA aerosol inhaler 2 puff inhalation QID PRN (Reason: shortness of breath or wheezing) Qty: 6.7 0RF levofloxacin 750 mg tablet 750 mg PO Q24H Qty: 4 0RF Follow Up Plan Follow up with: PCP, PCP [Other] (2 week) Unknown,Unknown [Primary Care Provider] - Patient Disposition: Home, Self-Care Rehab Potential: Good I certify that the patient requires SNF services: No Overall status at discharge: patient is back to baseline Discharge Orders: Discharge Order (Routine); Ordered 09/03/21 Ordered By: Joe Pritchett
[2021-09-03] MEDS ORDERED: IPRATROPIUM/ALBUTEROL 3 ML AMPUL.NEB NEB SCH (19:00)
== END 2021-09-03 17:39 | disposition home or self-care (01) | DRG 202 ==
LOC: ED 09:35 → ICU 14:36
PROVIDERS: ADMIT Internal Medicine; ATTEND Internal Medicine

== ENCOUNTER 2022-11-30 10:33 | Inpatient (IN) ==
[2022-11-30] MEDS ORDERED: IPRATROPIUM/ALBUTEROL 3 ML AMPUL.NEB NEB ONE ×2 (10:37→10:52)
[2022-11-30] MEDS ORDERED: HEPARIN 5,000 UNIT/ML VIAL IV ONE (10:41)
[2022-11-30] MEDS ORDERED: HEPARIN SOD,PORK IN 0.45% NACL 25,000 UNIT in PREMIX 1 BAG IV SCH (10:45)
[2022-11-30] MEDS ORDERED: MAGNESIUM SULFATE 2 GM/50 ML BAG IV ONE ×2 (10:50→11:24)
[2022-11-30 11:15] LABS: POC Calcium, Ionized 1.21 (1.16-1.32); POC Creatinine 0.8 (0.6-1.2); POC Potassium 4.7 (3.3-5.1)
[2022-11-30] MEDS ORDERED: ALBUTEROL SULFATE 2.5 MG/3 ML NEBULIZER NEB ONE (11:25)
[2022-11-30 11:41] LABS: Creatine Kinase 123 U/L (24-195)
--- NOTE | 2022-11-30 11:54 | Emergency Department Note ---
Asthma HPI General Chief Complaint: Asthma Stated Complaint: Asthma Time Seen by Provider: 11/30/22 10:37 Source: patient and family Mode of arrival: ambulatory Limitations: no limitations History of Present Illness HPI Narrative: 22-year-old male with history of asthma presents with acute asthma exacerbation. He states that this started yesterday. He was using his home albuterol nebulizers and his Breo Ellipta inhaler without benefit. Unfortunately, he did not have his albuterol inhaler. He struggled with the night, then went to [facility] this morning where he received 125 mg of IV Solu-Medrol and 1 DuoNeb followed by 1 albuterol nebulizer treatment. Symptoms have not significantly improved. He presents in moderate respiratory distress with saturations 91% on 2 L of oxygen. He has significant expiratory wheezing and nail beds are cyanotic. Chest x-ray was reviewed from [facility]. 2 view shows no infiltrates. CBC from [facility] shows a WBC of 11,600 and neutrophil count of 8.32. The patient states that on Saturday he did have some upper respiratory symptoms and cough. He has not tested for COVID or influenza. Related Data Previous Rx's Medication Instructions Recorded albuterol sulfate 90 mcg/actuation 2 puff inhalation QID PRN 02/15/22 aerosol inhaler shortness of breath or wheezing #8.5 grams fluticasone furoate 100 1 inh inhalation Q24H #60 ea 07/31/22 mcg-vilanterol 25 mcg/dose inhalation powder (Breo Ellipta) escitalopram oxalate 10 mg tablet 10 mg PO QDAY #30 tabs 11/15/22 (Lexapro) Allergies Allergy/AdvReac Type Severity Reaction Status Date / Time No Known Drug Allergies Allergy Verified 11/30/22 10:34 Review of Systems ROS ROS Narrative: Narrative: All systems ED: reviewed and negative except as stated. [facility] Narrative Patient History Narrative: Narrative: Medical/Surgical/Family History All Active Problems Depression with anxiety (Chronic) Hiatal hernia (Acute) History of COVID-19 (Acute) Crepitus of right shoulder joint (Chronic) COVID-19 (Chronic) Asthma (Chronic) Acute respiratory failure with hypoxia (Chronic) Asthma exacerbation (Chronic) Pneumonia (Chronic) Shortness of breath (Chronic) Medical History Acute respiratory failure with hypoxia Asthma Improved with Breo Ellipta Asthma exacerbation COVID-19 x2 Hiatal hernia History of COVID-19 Pneumonia Shortness of breath Surgical History No pertinent past surgical history Family History Father HTN (hypertension) Grandfather Diabetes mellitus, type II Social History Smoking Status: Never smoker Alcohol Intake Frequency: a few times a month Substance Use: marijuana Exam Narrative Narrative: General: AOx3, NAD, nontoxic appearing. Pleasant and conversant. HEENT: PERRL, EOMI, normocephalic. Moist mucous membranes. Normal facies and normal dentition. Chest: Symmetric, no pain to palpation Respiratory: Expiratory wheezes throughout. Moderate respiratory distress with respiratory rate of 38 breaths/min. Labored breathing with supraclavicular retractions Heart: Tachycardic rate and rhythm, no murmurs/clicks/rubs. Abdomen: Non-tender, Non distended, normal bowel tones. No organomegaly. Extremities: Warm and well perfused. No edema. DP 2+ bilaterally. No venous stasis. Neuro: No focal deficits. Cranial nerves II-XII grossly normal. Skin: Warm dry, no rashes or lesions, fingertips are cyanotic and skin is pale. Psych: Normal mood and affect Heme/Lymph: No abnormal bruising General Limitations: no limitations Course Course Course Narrative: 22-year-old male presents for acute asthma exacerbation Reevaluation(s) Reevaluation #1: The patient has already received 125 mg IV Solu-Medrol prior to coming to the ER Give additional DuoNeb treatment and monitor for response Time: 11:46 Reevaluation #2: Additional DuoNeb treatment not effective, give 2 mg IV magnesium sulfate infusion over 20 minutes Add continuous DuoNebs Time: 12:16 Reevaluation #3: Patient with no significant improvement. Respiratory rate remains high. At this time I believe he would need to be admitted for his exacerbation. Vital Signs Vital signs: Vital Signs Temperature 97.7 F 11/30/22 10:34 Pulse Rate 110 H 11/30/22 10:34 Respiratory Rate 26 H 11/30/22 10:34 Blood Pressure 133/91 11/30/22 10:34 Pulse Oximetry (%) 91 11/30/22 10:34 Oxygen Delivery Method Room Air 11/30/22 10:34 Temperature 97.7 F 11/30/22 10:34 Pulse Rate 115 H 11/30/22 13:31 Respiratory Rate 41 H 11/30/22 13:31 Blood Pressure 137/73 11/30/22 13:31 Pulse Oximetry (%) 92 11/30/22 13:31 Oxygen Delivery Method Aerosol Mask 11/30/22 12:18 Oxygen Flow Rate (L/min) 2 11/30/22 10:36 MDM MDM Narrative Medical decision making narrative: Acute asthma exacerbation COVID and influenza are negative. Chest x-ray without infiltrates. No significant improvement with bronchodilators, IV magnesium, and supplemental O2. Patient continues to be hypoxic requiring 2 L nasal cannula to keep sats above 90%. He will need admission and I reached out to Dr. Wood who is excepted the patient. We discussed giving 0.3 mg of IM epinephrine for bronchodilatation, which is administered here in the ER prior to admission. Lab Data Labs: Lab Results 11/30/22 11/30/22 Range/Units 10:57 11:01 POC Hct 54.0 (41-55) POC Sodium 140 (133-145) POC Potassium 4.7 (3.3-5.1) POC Chloride 105 (96-108) POC Total CO2 26.0 (22-30) POC BUN 16 (6-20) POC Creatinine 0.8 (0.6-1.2) POC Glucose 105 (70-105) POC WB Ioniz Calcium 1.21 (1.16-1.32) Total Creatine Kinase 123 (24-195) U/L ED POC Tests ED POC Tests: PHILOMENA - Influenza A Negative PHILOMENA - Influenza B Negative PHILOMENA - SARS Antigen Negative CC TIME Critical Care Time Attestation: I personally spent a total of 31 minutes of critical care time in obtaining history, performing a physical exam, bedside monitoring of interventions, collecting interpreting tests and discussions with consultants but excluding time spent performing procedures, treating other patients and teaching time. Clinical concern Respiratory failure Intervention: Intramuscular epinephrine, IV magnesium, continuous bronchodilators, admission Discharge Plan Patient/Caregiver Discharge Instructions Pt seen by MATH AND SCIENCE INSTRUCTOR/PA only: Yes Clinical Impression: Acute asthma exacerbation Patient Disposition: Xfer As Inpt ([facility]) Condition: Serious Follow up with: Shahida Mcclure PA-C [Primary Care Provider] - Prescriptions: No Action albuterol sulfate 90 mcg/actuation HFA aerosol inhaler 2 puff inhalation QID PRN (Reason: shortness of breath or wheezing) Qty: 8.5 3RF fluticasone furoate-vilanterol [Breo Ellipta] 100-25 mcg/dose blister with device 1 inh inhalation Q24H Qty: 60 12RF escitalopram oxalate [Lexapro] 10 mg tablet 10 mg PO QDAY Qty: 30 3RF
[2022-11-30] MEDS ORDERED: EPINEPHrine 1 MG/ML VIAL IM ONE (12:45)
--- NOTE | 2022-11-30 13:05 | Internal Med History&Physical ---
HPI History of Present Illness Patient information: Note initiated : 11/30/22 at 1:01 pm Service Date, if different from initiated Date: [] Patient: Rolando Velazquez a 22 y/o M admitted on for Asthma. Chief Complaint: [shortness of breath] Chief complaint: shortness of breath History of present illness: Mr. Velazquez is a 22 year old M history of asthma, depression with anxiety, presenting with 2-day history of acute onset shortness of breath wheezing and cough. He has been diagnosed with asthma 2 years ago. He used Breo Ellipta on a daily basis as well as albuterol rescue inhaler as needed for shortness of breath/respiratory wheezings. He lives in the lower apartment with carpets and he also live with his cat. He is local from here. 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 He does not recognize any other environmental trigger. Yesterday he started to experience acute onset shortness of breath with respiratory wheezing and nonproductive cough. He is also complaining of the subjective fever and chills. He is also commenting of chest tightness and chest pressure. His symptoms got worse to the point that today he presented to outside clinic who referred him to come to our ED for further evaluations. His vital signs significant for tachycardia and tachypnea heart rate and rate of breathing up to 1 teens and mid 30s, respectively. He also oxygen and desaturated to the high 80s and he was being placed on 2 L/min oxygen. Labs otherwise unremarkable and he screened negative for COVID-pneumonia. Constitutional Constitutional: Present chills and fever(s); Absent excessive sweating, fatigue or weakness EENT Eyes: Absent blurry vision, change in vision, loss of vision or other visual disturbances Ears: Absent decreased hearing or tinnitus Nose, mouth and throat: Absent abnormal hearing, dry mouth, headache(s), nasal congestion or sore throat Cardiovascular Cardiovascular: Absent chest pain, chest pain at rest, edema, irregular heart rhythm or palpatations Additional comments: chest pressure Respiratory Respiratory: Present cough, dyspnea and wheezing Gastrointestinal Gastrointestinal: Absent abdominal pain, constipation, diarrhea, nausea or vomiting Musculoskeletal Musculoskeletal: Absent back pain, deformity, limited range of motion, muscle cramps, muscle weakness or numbness Integumentary Integumentary: Absent lesions, rash or wounds Neurological Neurological: Absent focal weakness, headache(s) or numbness Psychiatric Psychiatric: Present anxiety; Absent depression or hallucinations PFSH PFSH All Active Problems Depression with anxiety (Chronic) Hiatal hernia (Acute) History of COVID-19 (Acute) Crepitus of right shoulder joint (Chronic) COVID-19 (Chronic) Asthma (Chronic) Acute respiratory failure with hypoxia (Chronic) Asthma exacerbation (Chronic) Pneumonia (Chronic) Shortness of breath (Chronic) Medical History Acute respiratory failure with hypoxia Asthma Improved with Breo Ellipta Asthma exacerbation COVID-19 x2 Hiatal hernia History of COVID-19 Pneumonia Shortness of breath Surgical History No pertinent past surgical history Family History Father HTN (hypertension) Grandfather Diabetes mellitus, type II Social History marital status: single occupational status: employed occupation: [employer] smoking status: Never smoker alcohol intake frequency: a few times a month substance use type: marijuana MEDS/ALLERGIES Home Medications and Allergies Home Medications Medication Instructions Recorded Confirmed Type albuterol sulfate 90 mcg/actuation 2 puff inhalation QID PRN 02/15/22 11/15/22 Rx aerosol inhaler shortness of breath or wheezing #8.5 grams fluticasone furoate 100 1 inh inhalation Q24H #60 ea 07/31/22 11/15/22 Rx mcg-vilanterol 25 mcg/dose inhalation powder (Breo Ellipta) escitalopram oxalate 10 mg tablet 10 mg PO QDAY #30 tabs 11/15/22 11/15/22 Rx (Lexapro) Allergies Allergy/AdvReac Type Severity Reaction Status Date / Time No Known Drug Allergies Allergy Verified 11/30/22 10:34 EXAM Constitutional Vitals: Temp Pulse Resp BP Pulse Ox O2 Del Method O2 Flow Rate 36.5 C 106 H 34 H 136/82 92 Aerosol Mask 2 11/30/22 10:34 11/30/22 12:31 11/30/22 12:31 11/30/22 12:31 11/30/22 12:31 11/30/22 12:18 11/30/22 10:36 General appearance: cooperative, mild distress and no acute distress Head Head exam: Present atraumatic and normocephalic Eye Eye exam: Present EOMI and PERRL ENT ENT exam: Present mucous membranes moist, normal exam and normal external ear exam Additional comments: OxyMask in place Neck Neck exam: Present normal inspection; Absent lymphadenopathy, tenderness or thyromegaly Respiratory Respiratory exam: Present decreased breath sounds and wheezes; Absent accessory muscle use or respiratory distress Cardiovascular Cardiovascular exam: Present tachycardia; Absent JVD GI/Abdominal GI/Abdominal exam: Present normal bowel sounds and soft; Absent organomegaly or tenderness Rectal Rectal exam: Present deferred Extremities Exam Extremities exam: Present full ROM, normal capillary refill and normal inspection; Absent tenderness Neurological Exam Neurological exam: Present alert, CN II-XII intact and oriented X3; Absent motor sensory deficit Psychiatric Psychiatric exam: Present anxious, normal affect and normal mood; Absent depressed Skin Skin exam: Present dry and intact DATA Data Completed and Pending Labs: Labs from last 24 hours 11/30/22 11/30/22 11:01 10:57 POC Hct 54.0 POC Sodium 140 POC Potassium 4.7 POC Chloride 105 POC Total CO2 26.0 POC BUN 16 POC Creatinine 0.8 POC Glucose 105 POC WB Ioniz Calcium 1.21 Total Creatine Kinase 123 A/P Assessment and plan (1) Depression with anxiety: Status: Chronic (2) Asthma exacerbation: Status: Chronic (3) Acute respiratory failure with hypoxia: Status: Chronic Narrative A/P Narrative: Assessment and Plans: 1. Asthma exacerbation: Inpatient PCU Supplemental oxygen therapy titrate to achieve spo2>=92% s/p epinephrine and continuous albuterol treatments given in the ED To be followed by Xopenex scheduled and DuoNEB NEB PRN wheezing Breo Ellipta Solu-Medrol 125mg IV q6hr Robitussin DM 2. Depression/anxiety: Lexapro GI ppx: not currently indicated DVT ppx: SCDs Code status: Full Prognosis: guarded Disposition: inpatient PCU Time Spent With Patient Time: Total time spent is greater than 50% in coordination of care (as documented) at patient's floor/unit and/or counseling patient: Initial: Total time with patient: 55 - 74 minutes
[2022-11-30] MEDS ORDERED: SENNOSIDES 1 TABLET PO PRN (14:56)
[2022-11-30] MEDS ORDERED: ACETAMINOPHEN 325 MG TABLET PO PRN (14:56)
[2022-11-30] MEDS ORDERED: LACTULOSE 20 GM/30 ML ORAL.SOL PO PRN (14:56)
[2022-11-30] MEDS ORDERED: ONDANSETRON 4 MG/2 ML VIAL IV PRN (14:56)
[2022-11-30] MEDS ORDERED: IPRATROPIUM/ALBUTEROL 3 ML AMPUL.NEB NEB PRN (14:56)
[2022-11-30] MEDS ORDERED: LEVALBUTEROL 0.63 MG/3 ML AMPUL.NEB NEB SCH (15:00)
[2022-11-30] MEDS: 0.9 % SODIUM CHLORIDE 10 ML SYRINGE IV SCH ×2 (15:45→21:11)
[2022-11-30] MEDS: methylPREDNISolone SOD SUCC 125 MG/2 ML VIAL IV SCH (17:18)
[2022-11-30] MEDS: guaiFENesin/DEXTROMETHORPHAN 5ML UD CUP PO PRN ×2 (17:18→21:11)
[2022-11-30] MEDS: IPRATROPIUM/ALBUTEROL 3 ML AMPUL.NEB NEB SCH ×2 (18:32→23:29)
[2022-11-30] MEDS: DOCUSATE SODIUM 100 MG CAPSULE PO SCH (21:12)
[2022-12-01] MEDS: methylPREDNISolone SOD SUCC 125 MG/2 ML VIAL IV SCH ×5 (00:18→23:14)
[2022-12-01] MEDS: guaiFENesin/DEXTROMETHORPHAN 5ML UD CUP PO PRN ×5 (00:59→23:13)
[2022-12-01] MEDS: IPRATROPIUM/ALBUTEROL 3 ML AMPUL.NEB NEB SCH ×6 (03:20→22:57)
[2022-12-01] MEDS: 0.9 % SODIUM CHLORIDE 10 ML SYRINGE IV SCH ×4 (05:20→23:14)
[2022-12-01] MEDS: DOCUSATE SODIUM 100 MG CAPSULE PO SCH ×2 (09:37→21:43)
--- NOTE | 2022-12-01 10:33 | Internal Med Progress Note ---
SUBJECTIVE Subjective Patient information: Note initiated : 12/01/22 at 10:29 am Service Date, if different from initiated Date: [] Patient: Rolando Velazquez a 22 y/o M admitted on 11/30/22 for Asthma. Chief Complaint: [] Interval history: Mr. Velazquez is a 22 year old M history of asthma, depression with anxiety, presenting with 2-day history of acute onset shortness of breath wheezing and cough. He has been diagnosed with asthma 2 years ago. He used Breo Ellipta on a daily basis as well as albuterol rescue inhaler as needed for shortness of breath/respiratory wheezings. He lives in the lower apartment with carpets and he also live with his cat. He is local from here. 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 He does not recognize any other environmental trigger. Yesterday he started to experience acute onset shortness of breath with respiratory wheezing and nonproductive cough. He is also complaining of the subjective fever and chills. He is also commenting of chest tightness and chest pressure. His symptoms got worse to the point that today he presented to outside clinic who referred him to come to our ED for further evaluations. His vital signs significant for tachycardia and tachypnea heart rate and rate of breathing up to 1 teens and mid 30s, respectively. He also oxygen and desaturated to the high 80s and he was being placed on 2 L/min oxygen. Labs otherwise unremarkable and he screened negative for COVID-pneumonia. 12/01: Patient was up to 6 L/min OxyMask overnight and currently is on 5 L OxyMask. Subjectively, patient feels like he is degree of shortness of breath has improved. The degree of cough and respiratory wheezing has also improved. He denies any chest tightness or pressure. He denies any fever or chills or diaphoresis. He is still coming of anxiety but it has improved since yesterday. We will order D-dimer to screen for pulmonary embolism. Continue supplemental oxygen therapy. Continue Solu-Medrol, Breo Ellipta, and DuoNeb. Keep the patient in PCU telemetry. Constitutional Vitals: Vital Signs Temp Pulse Resp BP Pulse Ox O2 Del Method O2 Flow Rate 36.6 C 104 H 28 H 138/78 92 Oxymask 5 12/01/22 08:01 12/01/22 10:01 12/01/22 10:01 12/01/22 10:01 12/01/22 10:01 12/01/22 10:01 12/01/22 10:01 Period Temp Pulse Resp BP Sys/Pete Pulse Ox O2 Del Method O2 Flow Rate Last 24 Hr 36.1 C-36.6 C 67-122 18-42 109-157/58-93 87-96 Aerosol Mask- Room Air 2-5 Intake and Output 11/30/22 12/01/22 12/01/22 19:59 03:59 11:59 Intake Total 300 300 Output Total 350 Balance 300 -350 300 Weight 66.735 kg Intake & Output: Intake & Output 11/30/22 12/01/22 12/01/22 19:59 03:59 11:59 Intake Total 300 300 Output Total 350 Balance 300 -350 300 Weight 66.735 kg Intake: IV 50 Oral 250 300 Output: Void Amount 350 Other: Meal Breakfast Percent of Meal Consumed 100% Feeding Ability Independent Urine Appearance Clear Urine Color Dark Yellow Head Head exam: Present atraumatic and normal inspection Eye Eye exam: Present normal appearance ENT ENT exam: Present mucous membranes moist, normal exam and normal external ear exam Additional comments: Oxymask in place Neck Neck exam: Present normal inspection Respiratory Respiratory exam: Present decreased breath sounds and wheezes Cardiovascular Cardiovascular exam: Present tachycardia GI/Abdominal GI/Abdominal exam: Present normal bowel sounds Back Exam Back exam: Present normal inspection Neurological Exam Neurological exam: Present alert and oriented X3 Skin Skin exam: Present intact and warm OBJ DATA Labs Meds: Medications Acetaminophen (Acetaminophen 325 Mg Tablet) 650 mg PO Q6HP PRN; Protocol PRN Reason: Per Pain Protocol/Fever > 101 Albuterol/Ipratropium (Ipratropium/Albuterol 3 Ml Ampul.Neb) 3 ml NEB Q4HRT PRN PRN Reason: Wheezing Last Admin: 11/30/22 15:29 Dose: 3 ml Albuterol/Ipratropium (Ipratropium/Albuterol 3 Ml Ampul.Neb) 3 ml NEB Q4HRT [facility] Last Admin: 12/01/22 07:51 Dose: 3 ml Docusate Sodium (Docusate Sodium 100 Mg Capsule) 100 mg PO BID [facility] Last Admin: 12/01/22 09:37 Dose: Not Given Escitalopram Oxalate (Escitalopram 10 Mg Tablet) 10 mg PO QDAY [facility] Guaifenesin (Guaifenesin/Dextromethorphan 5ml Ud Cup) 10 ml PO Q4HP PRN PRN Reason: Cough Last Admin: 12/01/22 05:20 Dose: 10 ml Lactulose (Lactulose 20 Gm/30 Ml Oral.Lenore) 10 gm PO DAILYP PRN PRN Reason: Constipation Methylprednisolone Sodium Succinate (Methylprednisolone Sod Succ 125 Mg/2 Ml Vial) 125 mg IV Q6 [facility] Last Admin: 12/01/22 05:21 Dose: 125 mg Ondansetron HCl (Ondansetron 4 Mg/2 Ml Vial) 4 mg IV Q4HP PRN; Protocol PRN Reason: Nausea And Vomiting Fluticasone Furoate- Vilanterol [Breo Ellipta] 100-25 Mcg Inhaler 1 dose INH DAILY [facility] Senna (Sennosides 1 Tablet) 2 tab PO HSP PRN PRN Reason: Constipation Sodium Chloride (0.9 % Sodium Chloride 10 Ml Syringe) 10 ml IV Q8 [facility] Last Admin: 12/01/22 05:20 Dose: 10 ml A/P Assessment and plan (1) Depression with anxiety: Status: Chronic (2) Asthma exacerbation: Status: Chronic (3) Acute respiratory failure with hypoxia: Status: Chronic Narrative A/P Narrative: Assessment and Plans: 1. Asthma exacerbation: Inpatient PCU Supplemental oxygen therapy titrate to achieve spo2>=92% s/p epinephrine and continuous albuterol treatments given in the ED DuoNEB NEB Breo Ellipta Solu-Medrol 125mg IV q6hr Robitussin DM D dimer to screen for pulmonary embolism 2. Depression/anxiety: Lexapro GI ppx: not currently indicated DVT ppx: SCDs Code status: Full Prognosis: guarded Disposition: inpatient PCU Time Spent With Patient Time: Total time spent is greater than 50% in coordination of care (as documented) at patient's floor/unit and/or counseling patient: Subsequent: Total time with patient: 35 - 49 minutes
[2022-12-01] MEDS: ESCITALOPRAM 10 MG TABLET PO SCH (10:54)
[2022-12-02] MEDS: guaiFENesin/DEXTROMETHORPHAN 5ML UD CUP PO PRN ×5 (03:20→20:15)
[2022-12-02] MEDS: IPRATROPIUM/ALBUTEROL 3 ML AMPUL.NEB NEB SCH ×6 (03:20→22:54)
[2022-12-02] MEDS: methylPREDNISolone SOD SUCC 125 MG/2 ML VIAL IV SCH ×4 (05:45→23:00)
[2022-12-02] MEDS: 0.9 % SODIUM CHLORIDE 10 ML SYRINGE IV SCH ×3 (05:45→21:54)
--- NOTE | 2022-12-02 09:14 | Internal Med Progress Note ---
SUBJECTIVE Subjective Patient information: Note initiated : 12/02/22 at 9:12 am Service Date, if different from initiated Date: [] Patient: Rolando Velazquez a 22 y/o M admitted on 11/30/22 for Asthma. Chief Complaint: [] Interval history: Mr. Velazquez is a 22 year old M history of asthma, depression with anxiety, presenting with 2-day history of acute onset shortness of breath wheezing and cough. He has been diagnosed with asthma 2 years ago. He used Breo Ellipta on a daily basis as well as albuterol rescue inhaler as needed for shortness of breath/respiratory wheezings. He lives in the lower apartment with carpets and he also live with his cat. He is local from here. 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 He does not recognize any other environmental trigger. Yesterday he started to experience acute onset shortness of breath with respiratory wheezing and nonproductive cough. He is also complaining of the subjective fever and chills. He is also commenting of chest tightness and chest pressure. His symptoms got worse to the point that today he presented to outside clinic who referred him to come to our ED for further evaluations. His vital signs significant for tachycardia and tachypnea heart rate and rate of breathing up to 1 teens and mid 30s, respectively. He also oxygen and desaturated to the high 80s and he was being placed on 2 L/min oxygen. Labs otherwise unremarkable and he screened negative for COVID-pneumonia. 12/01: Patient was up to 6 L/min OxyMask overnight and currently is on 5 L OxyMask. Subjectively, patient feels like he is degree of shortness of breath has improved. The degree of cough and respiratory wheezing has also improved. He denies any chest tightness or pressure. He denies any fever or chills or diaphoresis. He is still coming of anxiety but it has improved since yesterday. We will order D-dimer to screen for pulmonary embolism. Continue supplemental oxygen therapy. Continue Solu-Medrol, Breo Ellipta, and DuoNeb. Keep the patient in PCU telemetry. 12/02: Patient is currently on 5 L/min OxyMask. D-dimer not elevated. Patient is experiencing improving degree of shortness of breath. He is having productive cough with yellow/light green sputum productions. He is experiencing wheezing but is less compared to yesterday. He is coming of improving degree of chest tightness. He denies any fever chills or diaphoresis. He denies any anxiety. Continue supplemental oxygen therapy. Continue Solu-Medrol, Breo Ellipta, and DuoNeb. Keep the patient in PCU telemetry. Constitutional Vitals: Vital Signs Temp Pulse Resp BP Pulse Ox O2 Del Method O2 Flow Rate 36.2 C 85 29 H 96/48 91 Nasal Cannula 5 12/02/22 08:01 12/02/22 08:01 12/02/22 08:01 12/02/22 08:01 12/02/22 08:01 12/02/22 08:01 12/02/22 08:01 Period Temp Pulse Resp BP Sys/Pete Pulse Ox O2 Del Method O2 Flow Rate Last 24 Hr 36.2 C-36.7 C 63-137 16-29 96-138/48-84 89-94 Nasal Cannula- Oxymask 5-6 Intake and Output 12/01/22 12/02/22 12/02/22 19:59 03:59 11:59 Intake Total 800 1100 Output Total 0 200 Balance 800 1100 -200 Weight 67.188 kg Intake & Output: Intake & Output 12/01/22 12/02/22 12/02/22 19:59 03:59 11:59 Intake Total 800 1100 Output Total 0 200 Balance 800 1100 -200 Weight 67.188 kg Intake: Oral 800 1100 Output: Void Amount 200 # of times incontinent of urine 0 Other: Meal Lunch Breakfast Percent of Meal Consumed 100% 100% Feeding Ability Independent Independent # Voids 1 1 # Bowel Movements 1 General appearance: cooperative and no acute distress Head Head exam: Present atraumatic and normal inspection Eye Eye exam: Present normal appearance ENT ENT exam: Present mucous membranes moist, normal exam and normal external ear exam Additional comments: Oxymask in place Neck Neck exam: Present normal inspection Respiratory Respiratory exam: Present decreased breath sounds and wheezes Cardiovascular Cardiovascular exam: Present normal rate and rhythm GI/Abdominal GI/Abdominal exam: Present normal bowel sounds Back Exam Back exam: Present normal inspection Neurological Exam Neurological exam: Present alert and oriented X3 Skin Skin exam: Present intact and warm OBJ DATA Labs Meds: Medications Acetaminophen (Acetaminophen 325 Mg Tablet) 650 mg PO Q6HP PRN; Protocol PRN Reason: Per Pain Protocol/Fever > 101 Albuterol/Ipratropium (Ipratropium/Albuterol 3 Ml Ampul.Neb) 3 ml NEB Q4HRT PRN PRN Reason: Wheezing Last Admin: 11/30/22 15:29 Dose: 3 ml Albuterol/Ipratropium (Ipratropium/Albuterol 3 Ml Ampul.Neb) 3 ml NEB Q4HRT [facility] Last Admin: 12/02/22 06:57 Dose: 3 ml Docusate Sodium (Docusate Sodium 100 Mg Capsule) 100 mg PO BID [facility] Last Admin: 12/01/22 21:43 Dose: Not Given Escitalopram Oxalate (Escitalopram 10 Mg Tablet) 10 mg PO QDAY [facility] Last Admin: 12/01/22 10:54 Dose: 10 mg Guaifenesin (Guaifenesin/Dextromethorphan 5ml Ud Cup) 10 ml PO Q4HP PRN PRN Reason: Cough Last Admin: 12/02/22 07:19 Dose: 10 ml Lactulose (Lactulose 20 Gm/30 Ml Oral.Lenore) 10 gm PO DAILYP PRN PRN Reason: Constipation Methylprednisolone Sodium Succinate (Methylprednisolone Sod Succ 125 Mg/2 Ml Vial) 125 mg IV Q6 [facility] Last Admin: 12/02/22 05:45 Dose: 125 mg Ondansetron HCl (Ondansetron 4 Mg/2 Ml Vial) 4 mg IV Q4HP PRN; Protocol PRN Reason: Nausea And Vomiting Fluticasone Furoate- Vilanterol [Breo Ellipta] 100-25 Mcg Inhaler 1 dose INH DAILY [facility] Last Admin: 12/01/22 11:02 Dose: 1 dose Senna (Sennosides 1 Tablet) 2 tab PO HSP PRN PRN Reason: Constipation Sodium Chloride (0.9 % Sodium Chloride 10 Ml Syringe) 10 ml IV Q8 [facility] Last Admin: 12/02/22 05:45 Dose: 10 ml A/P Assessment and plan (1) Depression with anxiety: Status: Chronic (2) Asthma exacerbation: Status: Chronic (3) Acute respiratory failure with hypoxia: Status: Chronic Narrative A/P Narrative: Assessment and Plans: 1. Asthma exacerbation: Inpatient PCU Supplemental oxygen therapy titrate to achieve spo2>=92% s/p epinephrine and continuous albuterol treatments given in the ED DuoNEB NEB Breo Ellipta Solu-Medrol 125mg IV q6hr Robitussin DM D dimer not elevated 2. Depression/anxiety: Lexapro GI ppx: not currently indicated DVT ppx: SCDs Code status: Full Prognosis: guarded Disposition: inpatient PCU Time Spent With Patient Time: Total time spent is greater than 50% in coordination of care (as documented) at patient's floor/unit and/or counseling patient: Subsequent: Total time with patient: 35 - 49 minutes
[2022-12-02] MEDS: ESCITALOPRAM 10 MG TABLET PO SCH (10:19)
[2022-12-02] MEDS: DOCUSATE SODIUM 100 MG CAPSULE PO SCH ×2 (10:23→20:15)
[2022-12-02] MEDS ORDERED: IOPAMIDOL 100 ML BOTTLE IV ONE (18:21)
--- NOTE | 2022-12-02 18:59 | Cat Scan Report ---
History: Asthma with hypoxia TECHNIQUE: Following injection of intravenous nonionic contrast the chest was imaged during the pulmonary arterial phase scanning from the thoracic inlet through the diaphragms. Sagittal and coronal reformats were created. The radiation exposure was limited using dose reduction technology. FINDINGS: The pulmonary arteries are normal in caliber with no intraluminal filling defects. The aorta is normal in caliber and there is no aneurysm or dissection. The heart is normal in size and contour. No pericardial or pleural effusion are present. There is bronchial wall thickening and mild mucosal plugging in some of the peripheral bronchi, most apparent in the lower lobes. No bronchiectasis is present. There is a mild mosaic distribution of groundglass alveolar opacities in both lungs. Linear opacities are present in the medial segment of the right middle lobe, inferior segment lingula and posterior and lateral basal segments of both lower lobes. There is no mass, emphysema or lobar consolidation. There are couple small lymph nodes in the left hilum which measure up to 1.2 cm. No enlarged mediastinal lymph nodes are present. Moderate bilateral gynecomastia is noted. Comparison with the prior CT done on 08/22/21 shows the groundglass alveolar opacities are recurrent finding but there is greater involvement today than there had been. The bands of scar/atelectasis in the lung bases have also increased in size and number. IMPRESSION: Bronchitis Random distribution of mild groundglass alveolar opacities in both lungs. This may be due to a nonuniform ventilation and perfusion in the lungs secondary to the asthma and bronchitis. However, infection with a virus such as Covid is a consideration. Small reactive lymph node in the left hilum Gynecomastia Dr. Monae was called with the report Interpreted and Authenticated by: Neftali Aguila 12/02/22
[2022-12-03] MEDS: IPRATROPIUM/ALBUTEROL 3 ML AMPUL.NEB NEB SCH ×6 (03:16→23:26)
[2022-12-03] MEDS: 0.9 % SODIUM CHLORIDE 10 ML SYRINGE IV SCH ×3 (05:33→21:39)
[2022-12-03] MEDS: methylPREDNISolone SOD SUCC 125 MG/2 ML VIAL IV SCH (05:34)
[2022-12-03] MEDS: guaiFENesin/DEXTROMETHORPHAN 5ML UD CUP PO PRN (05:35)
[2022-12-03] MEDS: DOCUSATE SODIUM 100 MG CAPSULE PO SCH ×2 (08:17→21:39)
[2022-12-03] MEDS: ESCITALOPRAM 10 MG TABLET PO SCH (08:18)
[2022-12-03] MEDS ORDERED: methylPREDNISolone SOD SUCC 40 MG/ML VIAL IV SCH (09:00)
[2022-12-03] MEDS: ACETYLCYSTEINE 800 MG/4 ML VIAL NEB SCH ×3 (10:24→19:33)
--- NOTE | 2022-12-03 14:02 | Internal Med Progress Note ---
SUBJECTIVE Subjective Patient information: Note initiated : 12/03/22 at 2:00 pm Service Date, if different from initiated Date: [] Patient: Rolando Velazquez 22 y/o M admitted on 11/30/22 for Asthma. Chief Complaint: [] Interval history: 22 yo male with known asthma. He had covid approx 1-2 years ago. He presented with wheezing, SOB, and hypoxia. He has been on high dose steroids and NBT. Dec 03, I assumed care from the prior Hospitalist. He is now on room air. CTA Chest last night negative for PE but positive for mucous plugging and GG opacities mostly in correlation with the mucous plugging. Nebulized NAC is ordered. Steroids reduced to prednisone PO. Likely d/c home tomorrow. Constitutional Vitals: Vital Signs Temp Pulse Resp BP Pulse Ox O2 Del Method O2 Flow Rate 97.6 F 104 H 25 H 117/69 92 Room Air 2 12/03/22 12:34 12/03/22 12:34 12/03/22 12:34 12/03/22 12:01 12/03/22 12:34 12/03/22 10:25 12/03/22 07:31 Period Temp Pulse Resp BP Sys/Pete Pulse Ox O2 Del Method O2 Flow Rate Last 24 Hr 97.1 F-98.7 F 70-115 14-26 105-138/51-82 86-95 Nasal Cannula- Room Air 2-5 Intake and Output 12/03/22 12/03/22 12/03/22 03:59 11:59 19:59 Intake Total 440 Balance 440 Weight 66.814 kg Intake & Output: Intake & Output 12/03/22 12/03/22 12/03/22 03:59 11:59 19:59 Intake Total 440 Balance 440 Weight 66.814 kg Intake: Oral 440 Other: Meal Breakfast Percent of Meal Consumed 100% Feeding Ability Independent # Voids 1 General appearance: average body habitus and no acute distress Head Head exam: Present atraumatic, normal inspection and normocephalic Respiratory Respiratory exam: Present decreased breath sounds and wheezes Additional comments: scattered mild wheeze, moderate to good air movement bilateral Cardiovascular Cardiovascular exam: Present normal rate and rhythm GI/Abdominal GI/Abdominal exam: Present normal bowel sounds and soft; Absent distended Neurological Exam Neurological exam: Present CN II-XII intact, oriented X3 and reflexes normal OBJ DATA Labs Meds: Medications Acetaminophen (Acetaminophen 325 Mg Tablet) 650 mg PO Q6HP PRN; Protocol PRN Reason: Per Pain Protocol/Fever > 101 Acetylcysteine (Acetylcysteine 800 Mg/4 Ml Vial) 600 mg NEB TID [facility] Last Admin: 12/03/22 10:24 Dose: 600 mg Albuterol/Ipratropium (Ipratropium/Albuterol 3 Ml Ampul.Neb) 3 ml NEB Q4HRT PRN PRN Reason: Wheezing Last Admin: 11/30/22 15:29 Dose: 3 ml Albuterol/Ipratropium (Ipratropium/Albuterol 3 Ml Ampul.Neb) 3 ml NEB Q4HRT [facility] Last Admin: 12/03/22 10:24 Dose: 3 ml Docusate Sodium (Docusate Sodium 100 Mg Capsule) 100 mg PO BID [facility] Last Admin: 12/03/22 08:17 Dose: 100 mg Escitalopram Oxalate (Escitalopram 10 Mg Tablet) 10 mg PO QDAY [facility] Last Admin: 12/03/22 08:18 Dose: 10 mg Guaifenesin (Guaifenesin/Dextromethorphan 5ml Ud Cup) 10 ml PO Q4HP PRN PRN Reason: Cough Last Admin: 12/03/22 05:35 Dose: 10 ml Lactulose (Lactulose 20 Gm/30 Ml Oral.Lenore) 10 gm PO DAILYP PRN PRN Reason: Constipation Ondansetron HCl (Ondansetron 4 Mg/2 Ml Vial) 4 mg IV Q4HP PRN; Protocol PRN Reason: Nausea And Vomiting Fluticasone Furoate- Vilanterol [Breo Ellipta] 100-25 Mcg Inhaler 1 dose INH DAILY [facility] Last Admin: 12/03/22 08:18 Dose: 1 dose Prednisone (Prednisone 20 Mg Tablet) 40 mg PO [facility] Senna (Sennosides 1 Tablet) 2 tab PO [facility] PRN PRN Reason: Constipation Sodium Chloride (0.9 % Sodium Chloride 10 Ml Syringe) 10 ml IV Q8 [facility] Last Admin: 12/03/22 13:15 Dose: 10 ml A/P Assessment and plan (1) Asthma: Assessment and plan: - stop methylprednisolone - start prednisone 40 mg daily - Mucomyst - continue NBT Status: Chronic Comment: Improved with Breo Ellipta Qualifiers: Asthma severity: severe Asthma persistence: persistent Asthma complication type: unspecified Qualified Code(s): J45.50 - Severe persistent asthma, uncomplicated Time Spent With Patient Time: Total time spent is greater than 50% in coordination of care (as documented) at patient's floor/unit and/or counseling patient:
[2022-12-04] MEDS: IPRATROPIUM/ALBUTEROL 3 ML AMPUL.NEB NEB SCH ×3 (03:18→11:24)
[2022-12-04] MEDS: 0.9 % SODIUM CHLORIDE 10 ML SYRINGE IV SCH (06:05)
[2022-12-04] MEDS: ACETYLCYSTEINE 800 MG/4 ML VIAL NEB SCH (07:36)
[2022-12-04] MEDS ORDERED: predniSONE 20 MG TABLET PO SCH (08:00)
[2022-12-04] MEDS: DOCUSATE SODIUM 100 MG CAPSULE PO SCH (08:10)
[2022-12-04] MEDS: ESCITALOPRAM 10 MG TABLET PO SCH (08:10)
--- NOTE | 2022-12-04 10:17 | Discharge Summary ---
Discharge Provider Provider IMPORTANT FOLLOW-UP INFORMATION FOR PCP: Patient information: Note initiated : 12/04/22 at 10:16 am Service Date, if different from initiated Date: [] Patient: Rolando Velazquez 22 y/o M admitted on 11/30/22 for Asthma. Chief Complaint: [] Date of admission: 11/30/22 14:44 Discharge date: 12/04/22 Primary care physician: Shahida Mcclure PA-C Admitting clinician: Joe Pritchett Attending physician on admission: Joe Pritchett Consults: 11/30/22 Consult to Physician [CONS] Stat Comment: Consulting Provider: Joe Pritchett Reason For Exam: Physician to Consult Attending physician on discharge: yaya monae md Discharging clinician: yaya monae md COURSE Hospital Course Hospital course: 22 yo male with known asthma. He had covid approx 1-2 years ago. He presented with wheezing, SOB, and hypoxia. He has been on high dose steroids and NBT. Dec 03, I assumed care from the prior Hospitalist. He is now on room air. CTA Chest last night negative for PE but positive for mucous plugging and GG opacities mostly in correlation with the mucous plugging. Nebulized NAC is ordered. Steroids reduced to prednisone PO. Likely d/c home tomorrow. Dec 04, much improved, cleared a large amount of mucous and secretions, doing well on room air. He is discharged home with a short prednisone taper. Discharge diagnosis: acute asthma exacerbation Reason for admission: asthma with hypoxia Time Spent with Patient Time attestation: Total time spent providing and/or coordinating discharge services: Time spent: Less than 30 minutes EXAM Constitutional Vitals: Temp Pulse Resp BP Pulse Ox O2 Del Method O2 Flow Rate 97.5 F 99 H 14 125/76 95 Room Air 2 12/04/22 08:01 12/04/22 10:06 12/04/22 10:06 12/04/22 08:01 12/04/22 10:06 12/04/22 08:01 12/03/22 16:01 General appearance: average body habitus Head Head exam: Present atraumatic, normal inspection and normocephalic Respiratory Respiratory exam: Present normal respiratory exam and wheezes (mild scattered wheeze) Cardiovascular Cardiovascular exam: Present normal rate and rhythm GI/Abdominal GI/Abdominal exam: Present normal bowel sounds and soft; Absent distended Neurological Exam Neurological exam: Present CN II-XII intact and oriented X3 Discharge Plan Patient/Caregiver Discharge Instructions Activity: increase activity as tolerated Diet: Regular Diet Instructions: Bronchiolitis (GEN), Asthma (DC), Asthma (GEN), Anxiety (GEN) Prescriptions: New prednisone 10 mg tablet See Rx Instructions .ROUTE .COMPLEX Qty: 14 0RF Rx Instructions: 4 tabs daily x 2 days, then 2 tabs daily x 2 days, then 1 tab daily x 1 day Continued albuterol sulfate 90 mcg/actuation HFA aerosol inhaler 2 puff inhalation QID PRN (Reason: shortness of breath or wheezing) Qty: 8.5 3RF Patient Comments: Last took ,"a few months ago." Patient states he,"lost his inhaler and cou ldnt use his albuterol." fluticasone furoate-vilanterol [Breo Ellipta] 100-25 mcg/dose blister with device 1 inh inhalation Q24H Qty: 60 12RF escitalopram oxalate [Lexapro] 10 mg tablet 10 mg PO QDAY Qty: 30 3RF Prescription drug monitoring program results: PDMP not reviewed Follow Up Plan Follow up with: Shahida Mcclure PA-C [Primary Care Provider] - (Your primary care Physician will contact you to schedule an appointment.) Patient Disposition: Home, Self-Care Prognosis: Good Overall status at discharge: patient is progressing back to baseline Discharge Orders: Discharge Order (Routine); Ordered 12/04/22 Ordered By: Yaya Monae
== END 2022-12-04 11:18 | disposition home or self-care (01) | DRG 202 ==
LOC: ED 10:33 → ICU 14:44
PROVIDERS: ADMIT Internal Medicine; ATTEND Internal Medicine

== ENCOUNTER 2024-08-20 19:03 | Inpatient (IN) ==
[2024-08-20] MEDS: ALBUTEROL SULFATE 2.5 MG/3 ML NEBULIZER NEB ONE ×3 (19:10→20:05)
[2024-08-20] MEDS: methylPREDNISolone SOD SUCC 125 MG/2 ML VIAL IV ONE (19:22)
[2024-08-20] MEDS: MAGNESIUM SULFATE 2 GM/50 ML BAG IV ONE (20:08)
[2024-08-20 20:09] LABS: Basophils # (Auto) 0.07 K/mcL (0.00-0.30); Basophils % (Auto) 0.7 % (0.0-2.0); Eosinophils # (Auto) 1.54 K/mcL (0.00-0.70); Eosinophils % (Auto) 15.3 % (0.0-7.0); Hematocrit 48.9 % (40.1-51.0); Hemoglobin 16.3 g/dL (13.7-17.5); Lymphocytes # (Auto) 2.43 K/mcL (1.50-4.80); Lymphocytes % (Auto) 24.1 % (15.5-49.0); Mean Cell Volume 93.7 fL (80.0-100.0); Mean Corpuscular HGB Conc 33.3 g/dL (31.0-36.0); Mean Platelet Volume 10.5 fL (8.8-12.5); Monocytes # (Auto) 1.27 K/mcL (0.10-0.90); Monocytes % (Auto) 12.6 % (1.0-12.0); Neutrophils % (Auto) 47.2 % (38.0-78.0); Platelet Count 250 K/mcL (140-440); RBC 5.22 M/mcL (4.63-6.08); Red Cell Distribution Width 11.7 % (11.5-14.5); WBC 10.1 K/mcL (4.5-11.0)
[2024-08-20] MEDS: MAGNESIUM SULFATE 8.12 MEQ/2 ML VIAL IV ONE (20:09)
[2024-08-20 20:24] LABS: ALT/SGPT 19 U/L (<40); AST/SGOT 30 U/L (<40); Albumin 4.7 gm/dL (3.2-5.2); Albumin/Globulin Ratio 1.9 (1.0-2.3); Alkaline Phosphatase 55 U/L (39-117); Bilirubin,Total 0.5 mg/dL (0.1-1.0); Blood Urea Nitrogen 16 mg/dL (6-20); Calcium 9.7 mg/dL (8.6-10.4); Carbon Dioxide 22 mmol/L (22-30); Chloride 108 mmol/L (96-108); Globulin 2.5 gm/dL (2.2-3.7); Glomerular Filtration Rate 120; Glucose 97 mg/dL (70-105); Potassium 4.2 mmol/L (3.3-5.1); Sodium 145 mmol/L (133-145)
[2024-08-20] MEDS: IPRATROPIUM 2.5 ML AMPUL.NEB ONE (21:59)
[2024-08-20] MEDS: IPRATROPIUM 2.5 ML AMPUL.NEB NEB ONE (21:59)
[2024-08-20] MEDS ORDERED: ACETAMINOPHEN 325 MG TABLET PO PRN (22:37)
[2024-08-20] MEDS ORDERED: ONDANSETRON 4 MG/2 ML VIAL IV PRN (22:37)
[2024-08-21] MEDS: IPRATROPIUM/ALBUTEROL 3 ML AMPUL.NEB NEB SCH (00:40)
[2024-08-21] MEDS: IPRATROPIUM/ALBUTEROL 3 ML AMPUL.NEB NEB ONE ×2 (00:46→04:01)
[2024-08-21] MEDS: 0.9 % SODIUM CHLORIDE 10 ML SYRINGE IV SCH (04:24)
[2024-08-21 06:36] LABS: Basophils # (Auto) 0.01 K/mcL (0.00-0.30); Basophils % (Auto) 0.1 % (0.0-2.0); Eosinophils # (Auto) 0 K/mcL (0.00-0.70); Eosinophils % (Auto) 0 % (0.0-7.0); Hematocrit 46.1 % (40.1-51.0); Hemoglobin 15.4 g/dL (13.7-17.5); Lymphocytes # (Auto) 0.64 K/mcL (1.50-4.80); Lymphocytes % (Auto) 7.6 % (15.5-49.0); Mean Cell Volume 94.3 fL (80.0-100.0); Mean Corpuscular HGB Conc 33.4 g/dL (31.0-36.0); Mean Platelet Volume 9.7 fL (8.8-12.5); Neutrophils % (Auto) 86.2 % (38.0-78.0); Platelet Count 261 K/mcL (140-440); RBC 4.89 M/mcL (4.63-6.08); Red Cell Distribution Width 11.6 % (11.5-14.5); WBC 8.4 K/mcL (4.5-11.0)
[2024-08-21 06:45] LABS: C-Reactive Protein 1.34 mg/dL (0.03-0.80)
[2024-08-21 06:54] LABS: ALT/SGPT 18 U/L (<40); AST/SGOT 24 U/L (<40); Albumin 4.6 gm/dL (3.2-5.2); Alkaline Phosphatase 50 U/L (39-117); Bilirubin,Total 0.3 mg/dL (0.1-1.0); Blood Urea Nitrogen 15 mg/dL (6-20); Carbon Dioxide 21 mmol/L (22-30); Chloride 107 mmol/L (96-108); Globulin 2.3 gm/dL (2.2-3.7); Glomerular Filtration Rate 126; Glucose 152 mg/dL (70-105); Potassium 4.7 mmol/L (3.3-5.1); Sodium 140 mmol/L (133-145)
[2024-08-21] MEDS: guaiFENesin/CODEINE 10 ML UDC PO PRN (08:04)
[2024-08-21] MEDS ORDERED: methylPREDNISolone SOD SUCC 125 MG/2 ML VIAL IV SCH (09:00)
[2024-08-21] MEDS: FLUTICASONE PROPIONATE SPRAY.NAS NS SCH (10:04)
[2024-08-21] MEDS: ESCITALOPRAM 20 MG TABLET PO SCH (10:04)
[2024-08-21] MEDS: Fluticasone Furoate-Vilanterol [Breo Ellipta] 200/5 mcg Inhaler INH SCH (10:05)
[2024-08-21] MEDS: methylPREDNISolone SOD SUCC 125 MG/2 ML VIAL IV SCH (10:05)
[2024-08-21] MEDS: ENOXAPARIN 40 MG/0.4 ML SYRINGE SQ SCH (10:05)
[2024-08-21] MEDS: MONTELUKAST 10 MG TABLET PO SCH (21:12)
[2024-08-22 06:26] LABS: Basophils # (Auto) 0 K/mcL (0.00-0.30); Basophils % (Auto) 0 % (0.0-2.0); Eosinophils # (Auto) 0 K/mcL (0.00-0.70); Eosinophils % (Auto) 0 % (0.0-7.0); Hematocrit 44.1 % (40.1-51.0); Hemoglobin 14.9 g/dL (13.7-17.5); Lymphocytes % (Auto) 9.7 % (15.5-49.0); Mean Cell Volume 94.8 fL (80.0-100.0); Mean Corpuscular HGB Conc 33.8 g/dL (31.0-36.0); Mean Platelet Volume 9.8 fL (8.8-12.5); Monocytes # (Auto) 0.59 K/mcL (0.10-0.90); Monocytes % (Auto) 6.4 % (1.0-12.0); Neutrophils % (Auto) 83.6 % (38.0-78.0); Platelet Count 267 K/mcL (140-440); RBC 4.65 M/mcL (4.63-6.08); WBC 9.3 K/mcL (4.5-11.0)
[2024-08-22 07:14] LABS: C-Reactive Protein 0.96 mg/dL (0.03-0.80)
[2024-08-22 07:40] LABS: ALT/SGPT 17 U/L (<40); AST/SGOT 23 U/L (<40); Albumin 4.6 gm/dL (3.2-5.2); Albumin/Globulin Ratio 1.8 (1.0-2.3); Alkaline Phosphatase 49 U/L (39-117); Bilirubin,Total 0.3 mg/dL (0.1-1.0); Blood Urea Nitrogen 21 mg/dL (6-20); Calcium 9.8 mg/dL (8.6-10.4); Carbon Dioxide 23 mmol/L (22-30); Chloride 107 mmol/L (96-108); Globulin 2.5 gm/dL (2.2-3.7); Glomerular Filtration Rate 126; Glucose 136 mg/dL (70-105); Potassium 5.1 mmol/L (3.3-5.1); Sodium 142 mmol/L (133-145)
[2024-08-22] MEDS ORDERED: POLYETHYLENE GLYCOL 3350 17 GM PACKET PO PRN (07:46)
[2024-08-22] MEDS: DOCUSATE SODIUM 100 MG CAPSULE PO SCH (08:06)
[2024-08-22] MEDS: IPRATROPIUM/ALBUTEROL 3 ML AMPUL.NEB NEB SCH (18:10)
[2024-08-23 07:46] LABS: Basophils # (Auto) 0.03 K/mcL (0.00-0.30); Basophils % (Auto) 0.3 % (0.0-2.0); Eosinophils # (Auto) 0.05 K/mcL (0.00-0.70); Eosinophils % (Auto) 0.6 % (0.0-7.0); Hematocrit 44.6 % (40.1-51.0); Hemoglobin 14.8 g/dL (13.7-17.5); Lymphocytes % (Auto) 38.2 % (15.5-49.0); Mean Cell Volume 95.5 fL (80.0-100.0); Mean Corpuscular HGB Conc 33.2 g/dL (31.0-36.0); Mean Platelet Volume 9.8 fL (8.8-12.5); Monocytes # (Auto) 0.99 K/mcL (0.10-0.90); Monocytes % (Auto) 11.1 % (1.0-12.0); Neutrophils % (Auto) 49.7 % (38.0-78.0); Platelet Count 263 K/mcL (140-440); RBC 4.67 M/mcL (4.63-6.08); Red Cell Distribution Width 11.7 % (11.5-14.5); WBC 8.9 K/mcL (4.5-11.0)
[2024-08-23] MEDS: predniSONE 20 MG TABLET PO SCH (08:20)
[2024-08-23 09:13] LABS: ALT/SGPT 18 U/L (<40); AST/SGOT 19 U/L (<40); Albumin 4.2 gm/dL (3.2-5.2); Albumin/Globulin Ratio 1.7 (1.0-2.3); Alkaline Phosphatase 44 U/L (39-117); Bilirubin,Total 0.6 mg/dL (0.1-1.0); Blood Urea Nitrogen 26 mg/dL (6-20); Calcium 9.7 mg/dL (8.6-10.4); Carbon Dioxide 26 mmol/L (22-30); Chloride 106 mmol/L (96-108); Globulin 2.5 gm/dL (2.2-3.7); Glomerular Filtration Rate 105; Glucose 93 mg/dL (70-105); Potassium 4.4 mmol/L (3.3-5.1); Sodium 142 mmol/L (133-145)
== END 2024-08-23 10:32 | disposition home or self-care (01) | DRG 202 ==
LOC: ED 19:03 → MEDSUR 22:21
PROVIDERS: ADMIT Student in an Organized Health Care Education/Training Program; ATTEND Student in an Organized Health Care Education/Training Program